=== PATIENT | female | born 1960 | race Two or more races ===

== ENCOUNTER 2024-10-12 19:34 | Emergency (ER) | payer MEDICARE, OTHER ==
[~2024-10-12] VITALS: Ht 157.5 cm; Wt 93.9 kg
[2024-10-12] MEDS ORDERED: HYDROCODONE/APAP 5/325MG TABLET ONE (19:56)
[2024-10-12] MEDS: HYDROCODONE/APAP 5/325MG TABLET PO ONE (19:59)
[2024-10-12 20:52] LABS: BASOPHILS % (AUTO) 0.7 % (0.0-2.0); EOSINOPHILS # (AUTO) 0.1 K/uL (0.0-0.7); EOSINOPHILS % (AUTO) 5.4 % (0.0-6.0); HEMATOCRIT 42 % (33-45); HEMOGLOBIN 13.8 g/dL (11.5-14.8); LYMPHOCYTES # (AUTO) 0.6 K/uL (0.8-4.8); LYMPHOCYTES % (AUTO) 33.5 % (20.0-44.0); MEAN CORPUSCULAR HEMOGLOBIN 32 PG (26.0-33.0); MEAN CORPUSCULAR HGB CONC 33 g/dl (31.0-36.0); MEAN CORPUSCULAR VOLUME 96 fL (82-100); MONOCYTES # (AUTO) 0.1 K/uL (0.1-1.30); MONOCYTES % (AUTO) 4.6 % (2.0-12.0); NEUTROPHILS % (AUTO) 55.8 % (43.0-81.0); PLATELET COUNT (AUTO) 102 K/uL (150-450); RED BLOOD CELL COUNT(AUTO) 4.33 MIL/uL (4.0-5.2); RED CELL DISTRIBUTION WIDTH 16.5 % (11.5-15.0)
[2024-10-12 20:56] LABS: CALCIUM, SERUM 9.5 mg/dL (8.5-10.1); CARBON DIOXIDE 27 mmol/L (21-32); CHLORIDE 103 mmol/L (98-107); CREATININE 0.9 mg/dL (0.6-1.3); GLUCOSE 221 mg/dL (74-106); POTASSIUM 5.3 mmol/L (3.5-5.1); SODIUM SERUM 134 mmol/L (136-145); UREA NITROGEN, BLOOD 16 mg/dL (7-18); WHITE BLOOD COUNT (AUTO) 1.8 K/uL (4.3-11.0)
[2024-10-12 21:02] LABS: ALANINE AMINOTRANSFERASE 107 U/L (12-78); ALBUMIN 3.5 g/dL (3.4-5.0); ALCOHOL, BLOOD < 3 mg/dL (0-10); ALKALINE PHOSPHATASE 117 U/L (46-116); ASPARTATE AMINOTRANSFERASE 55 U/L (15-37); BILIRUBIN,DIRECT 0.1 mg/dL (0.0-0.2); BILIRUBIN,TOTAL 0.3 mg/dL (0.2-1.0); TOTAL PROTEIN, SERUM 8.4 g/dL (6.4-8.2)
[2024-10-12 21:25] LABS: BAND % (MANUAL) 1 % (0.0-5.0); LYMPHOCYTES % (MANUAL) 32 % (16-48); MONOCYTES % (MANUAL) 7 % (0-11.0); NEUTROPHILS % (MANUAL) 57 (42-76)
[2024-10-12 21:26] LABS: ANISOCYTOSIS 1+; BASOPHILS % (MANUAL) 0 % (0.0-2.0); EOSINOPHILS % (MANUAL) 3 % (0-4); PLATELET ESTIMATE DECREASED
[2024-10-13 01:12] VITALS: BP 103/66; TEMP 97.7; O2SAT 97
== END 2024-10-13 01:12 ==
LOC: ER 19:36
DX: R25.1 Tremor, unspecified (principal); G89.29 Other chronic pain; M25.551 Pain in right hip; R00.0 Tachycardia, unspecified; R74.01 Elevation of levels of liver transaminase levels; E66.01 Morbid (severe) obesity due to excess calories; E87.6 Hypokalemia; G62.9 Polyneuropathy, unspecified; I48.91 Unspecified atrial fibrillation; I73.9 Peripheral vascular disease, unspecified; R56.9 Unspecified convulsions; Z79.01 Long term (current) use of anticoagulants; Z88.0 Allergy status to penicillin; Z88.5 Allergy status to narcotic agent; Z88.6 Allergy status to analgesic agent; Z68.37 Body mass index [BMI] 37.0-37.9, adult
CPT/HCPCS: 36415; 70450-TC; 72192-TC; 80048-TC; 80076-TC; 85025-TC; G0480

== ENCOUNTER 2024-10-18 17:53 | Inpatient (IN) | payer MEDICARE ==
[~2024-10-18] VITALS: Ht 167.6 cm; Wt 90.7 kg
[2024-10-18] MEDS ORDERED: LORAZEPAM INJ 2 MG/ML VIAL ONE ×3 (18:52→20:15)
[2024-10-18] MEDS: LORAZEPAM INJ 2 MG/ML VIAL IM ONE ×3 (19:00→20:35)
[2024-10-18] MEDS ORDERED: ZINC56.713 TP (19:22)
[2024-10-18] MEDS ORDERED: APIX5TAB PO (19:22)
[2024-10-18] MEDS ORDERED: SENN8.6T19 PO (19:22)
[2024-10-18] MEDS ORDERED: HYDR-4303 PO (19:22)
[2024-10-18] MEDS ORDERED: NA P133E RC (19:22)
[2024-10-18] MEDS ORDERED: ACET325T53 PO ×2 (19:22)
[2024-10-18] MEDS ORDERED: MAGN400O6 PO (19:22)
[2024-10-18] MEDS ORDERED: ARIP2TAB19 PO (19:22)
[2024-10-18] MEDS ORDERED: HYDR-3980 PO (19:22)
[2024-10-18] MEDS ORDERED: DOCU100C36 PO (19:22)
[2024-10-18] MEDS ORDERED: POLY119P17 PO (19:22)
[2024-10-18] MEDS ORDERED: BISA10SU11 RC (19:22)
[2024-10-18] MEDS ORDERED: NYST60PO TP (19:22)
[2024-10-18] MEDS ORDERED: TRIA0.2585 PO (19:22)
[2024-10-18] MEDS ORDERED: GABA600T12 PO (19:22)
[2024-10-18 19:58] LABS: EOSINOPHILS # (AUTO) 0.1 K/uL (0.0-0.7); EOSINOPHILS % (AUTO) 5.2 % (0.0-6.0); HEMATOCRIT 36 % (33-45); HEMOGLOBIN 11.8 g/dL (11.5-14.8); LYMPHOCYTES # (AUTO) 1.3 K/uL (0.8-4.8); LYMPHOCYTES % (AUTO) 50.6 % (20.0-44.0); MEAN CORPUSCULAR HEMOGLOBIN 32 PG (26.0-33.0); MEAN CORPUSCULAR HGB CONC 33 g/dl (31.0-36.0); MEAN CORPUSCULAR VOLUME 97 fL (82-100); MONOCYTES # (AUTO) 0.3 K/uL (0.1-1.30); MONOCYTES % (AUTO) 10.9 % (2.0-12.0); NEUTROPHILS # (AUTO) 0.8 K/uL (1.8-8.9); NEUTROPHILS % (AUTO) 32.3 % (43.0-81.0); PLATELET COUNT (AUTO) 92 K/uL (150-450); RED CELL DISTRIBUTION WIDTH 16.2 % (11.5-15.0); WHITE BLOOD COUNT (AUTO) 2.6 K/uL (4.3-11.0)
[2024-10-18] MEDS: IV NS 0.9% 500 ML BAG IV ONE (20:10)
[2024-10-18 20:11] LABS: CREATININE 0.9 mg/dL (0.6-1.3); POTASSIUM 4.9 mmol/L (3.5-5.1)
[2024-10-18 20:19] LABS: ALBUMIN 2.9 g/dL (3.4-5.0); BILIRUBIN,DIRECT 0.1 mg/dL (0.0-0.2); BILIRUBIN,TOTAL 0.2 mg/dL (0.2-1.0); TOTAL PROTEIN, SERUM 7.4 g/dL (6.4-8.2)
[2024-10-18] MEDS ORDERED: LEVETIRACETAM (500MG) 500 MG/5 ML VIAL IV ONE (20:28)
[2024-10-18] MEDS: LEVETIRACETAM (500MG) 1,000 MG in IV NS 0.9% 90 ML IV SCH (20:30)
[2024-10-18 20:36] LABS: NT-PRO BNP 60 pg/mL (0-125)
[2024-10-18] MEDS ORDERED: BISACODYL SUPP (10 MG) 10 MG/SUPP.RECT SUPP.RECT RC PRN (21:30)
[2024-10-18] MEDS ORDERED: Z GUARD REMEDY 4 OZ OINT TP PRN (21:30)
[2024-10-18] MEDS ORDERED: ONDANSETRON HCL/PF 4 MG/2 ML VIAL IVP PRN (21:30)
[2024-10-18] MEDS ORDERED: ACETAMINOPHEN 650 MG/SUPP.RECT RC PRN (21:30)
[2024-10-18] MEDS ORDERED: MAGNESIUM HYDROXIDE 30 ML UDC PO PRN (21:30)
[2024-10-18] MEDS: SENNOSIDES 8.6 MG TABLET PO SCH (22:00)
[2024-10-18 22:58] LABS: EOSINOPHILS % (MANUAL) 5 % (0-4); LYMPHOCYTES % (MANUAL) 55 % (16-48); MONOCYTES % (MANUAL) 9 % (0-11.0); NEUTROPHILS % (MANUAL) 31 (42-76); PLATELET ESTIMATE DECREASED
[2024-10-18 22:59] LABS: ANISOCYTOSIS 1+
[2024-10-18] MEDS: LORAZEPAM INJ 2 MG/ML VIAL IV PRN (23:15)
[2024-10-19] VITALS (19 sets, daily range): BP systolic 94–148; BP diastolic 48–96; TEMP 97.7–98.1; O2SAT 98–100
[2024-10-19] MEDS ORDERED: LORAZEPAM INJ 2 MG/ML VIAL ONE (03:12)
[2024-10-19] MEDS: IV NS 0.9% 1,000 ML IV SCH (06:30)
[2024-10-19] MEDS ORDERED: LEVETIRACETAM (500MG) 1,000 MG in PREMIX 90 EA IV SCH (09:00)
[2024-10-19] MEDS: DOCUSATE SODIUM 100 MG CAPSULE PO SCH (09:00)
[2024-10-19] MEDS ORDERED: APIXABAN 5 MG TABLET PO SCH (09:00)
[2024-10-19] MEDS ORDERED: ARIPIPRAZOLE 2 MG TABLET PO SCH (09:00)
[2024-10-19] MEDS: POLYETHYLENE GLYCOL 3350 17 GM POWD.PACK PO SCH (09:00)
[2024-10-19] MEDS: GABAPENTIN 300 MG CAPSULE PO SCH (09:00)
[2024-10-19] MEDS: IV NS 0.9% 1,000 ML IV PRN (09:04)
[2024-10-19] MEDS: LACOSAMIDE 200 MG in IV NS 0.9% 100 ML IV ONE (09:17)
[2024-10-19] MEDS: LEVETIRACETAM (500MG) 1,500 MG in IV NS 0.9% 85 ML IV SCH (09:17)
[2024-10-19] MEDS: PANTOPRAZOLE 40 MG VIAL IV SCH (09:22)
[2024-10-19] MEDS: LORAZEPAM INJ 2 MG/ML VIAL IV ONE ×2 (09:26→13:21)
[2024-10-19] MEDS ORDERED: LACOSAMIDE 100 MG in IV NS 0.9% 50 ML IV SCH (10:30)
[2024-10-19] MEDS: ENOXAPARIN SODIUM 100 MG/ML DISP.SYRIN SQ SCH (11:13)
[2024-10-19] MEDS: HALOPERIDOL LACTATE INJ 5 MG/ML VIAL IM ONE (12:41)
[2024-10-19] MEDS ORDERED: LORAZEPAM 4 MG/ML VIAL IV ONE (13:00)
[2024-10-19 13:49] LABS: CALCIUM, SERUM 8.9 mg/dL (8.5-10.1); CREATININE 0.7 mg/dL (0.6-1.3); MAGNESIUM 1.8 mg/dL (1.8-2.4); PHOSPHORUS 3.4 mg/dL (2.5-4.9); POTASSIUM 4.1 mmol/L (3.5-5.1)
[2024-10-19 13:54] LABS: BASOPHILS % (AUTO) 1.1 % (0.0-2.0); EOSINOPHILS # (AUTO) 0.1 K/uL (0.0-0.7); EOSINOPHILS % (AUTO) 5.5 % (0.0-6.0); HEMATOCRIT 35 % (33-45); HEMOGLOBIN 11.7 g/dL (11.5-14.8); LYMPHOCYTES # (AUTO) 0.9 K/uL (0.8-4.8); LYMPHOCYTES % (AUTO) 48.4 % (20.0-44.0); MEAN CORPUSCULAR HEMOGLOBIN 32 PG (26.0-33.0); MEAN CORPUSCULAR HGB CONC 34 g/dl (31.0-36.0); MEAN CORPUSCULAR VOLUME 95 fL (82-100); MONOCYTES # (AUTO) 0.1 K/uL (0.1-1.30); MONOCYTES % (AUTO) 6.6 % (2.0-12.0); NEUTROPHILS # (AUTO) 0.7 K/uL (1.8-8.9); NEUTROPHILS % (AUTO) 38.4 % (43.0-81.0); PLATELET COUNT (AUTO) 90 K/uL (150-450); RED BLOOD CELL COUNT(AUTO) 3.65 MIL/uL (4.0-5.2)
[2024-10-19 14:33] LABS: WHITE BLOOD COUNT (AUTO) 1.8 K/uL (4.3-11.0)
[2024-10-19 16:10] LABS: ANISOCYTOSIS 1+; BASOPHILS % (MANUAL) 0 % (0.0-2.0); EOSINOPHILS % (MANUAL) 4 % (0-4); LYMPHOCYTES % (MANUAL) 50 % (16-48); MONOCYTES % (MANUAL) 7 % (0-11.0); NEUTROPHILS % (MANUAL) 39 (42-76); PLATELET ESTIMATE DECREASED
[2024-10-19] MEDS: LACOSAMIDE 100 MG in IV NS 0.9% 50 ML IV SCH (20:43)
[2024-10-19] MEDS: HYDROMORPHONE 1 MG/1 ML DISP.SYRIN IV PRN (21:12)
[2024-10-20] VITALS (39 sets, daily range): BP systolic 82–131; BP diastolic 43–93; TEMP 97.4–98.1; O2SAT 96–100
[2024-10-20 12:08] LABS: BASOPHILS % (AUTO) 1.7 % (0.0-2.0); EOSINOPHILS # (AUTO) 0.1 K/uL (0.0-0.7); EOSINOPHILS % (AUTO) 4.9 % (0.0-6.0); HEMATOCRIT 34 % (33-45); HEMOGLOBIN 11.4 g/dL (11.5-14.8); LYMPHOCYTES # (AUTO) 1.1 K/uL (0.8-4.8); LYMPHOCYTES % (AUTO) 46.5 % (20.0-44.0); MEAN CORPUSCULAR HEMOGLOBIN 32 PG (26.0-33.0); MEAN CORPUSCULAR HGB CONC 33 g/dl (31.0-36.0); MEAN CORPUSCULAR VOLUME 96 fL (82-100); MONOCYTES # (AUTO) 0.1 K/uL (0.1-1.30); MONOCYTES % (AUTO) 6.1 % (2.0-12.0); NEUTROPHILS % (AUTO) 40.8 % (43.0-81.0); PLATELET COUNT (AUTO) 87 K/uL (150-450); RED BLOOD CELL COUNT(AUTO) 3.54 MIL/uL (4.0-5.2); RED CELL DISTRIBUTION WIDTH 16.2 % (11.5-15.0); WHITE BLOOD COUNT (AUTO) 2.3 K/uL (4.3-11.0)
[2024-10-20 12:31] LABS: CALCIUM, SERUM 8.8 mg/dL (8.5-10.1); CREATININE 0.7 mg/dL (0.6-1.3); POTASSIUM 4.4 mmol/L (3.5-5.1)
[2024-10-20 13:11] LABS: EOSINOPHILS % (MANUAL) 4 % (0-4); LYMPHOCYTES % (MANUAL) 44 % (16-48); MONOCYTES % (MANUAL) 10 % (0-11.0); NEUTROPHILS % (MANUAL) 42 (42-76); PLATELET ESTIMATE DECREASED
[2024-10-20] MEDS ORDERED: HYDROMORPHONE 1 MG/1 ML DISP.SYRIN IV PRN (20:00)
[2024-10-20] MEDS: HYDROMORPHONE 1 MG/1 ML DISP.SYRIN IV PRN (20:34)
[2024-10-20] MEDS ORDERED: NITROGLYCERIN 0.4 MG/TAB BOTTLE SL PRN (21:30)
[2024-10-20] MEDS: NITROGLYCERIN 0.4 MG/TAB BOTTLE SL PRN (21:54)
[2024-10-21] VITALS (47 sets, daily range): BP systolic 61–153; BP diastolic 33–95; TEMP 97.3–98.2; O2SAT 81–100
[2024-10-21] MEDS: MORPHINE SULFATE INJ 2 MG/ML DISP.SYRIN IV PRN (19:25)
[2024-10-21 20:39] LABS: BASOPHILS % (AUTO) 1.6 % (0.0-2.0); EOSINOPHILS # (AUTO) 0.1 K/uL (0.0-0.7); EOSINOPHILS % (AUTO) 5.4 % (0.0-6.0); HEMATOCRIT 34 % (33-45); HEMOGLOBIN 11.3 g/dL (11.5-14.8); LYMPHOCYTES # (AUTO) 1.1 K/uL (0.8-4.8); LYMPHOCYTES % (AUTO) 47.8 % (20.0-44.0); MEAN CORPUSCULAR HEMOGLOBIN 33 PG (26.0-33.0); MEAN CORPUSCULAR HGB CONC 33 g/dl (31.0-36.0); MEAN CORPUSCULAR VOLUME 98 fL (82-100); MONOCYTES # (AUTO) 0.2 K/uL (0.1-1.30); MONOCYTES % (AUTO) 9.3 % (2.0-12.0); NEUTROPHILS # (AUTO) 0.8 K/uL (1.8-8.9); NEUTROPHILS % (AUTO) 35.9 % (43.0-81.0); PLATELET COUNT (AUTO) 100 K/uL (150-450); RED BLOOD CELL COUNT(AUTO) 3.47 MIL/uL (4.0-5.2); RED CELL DISTRIBUTION WIDTH 16.1 % (11.5-15.0); WHITE BLOOD COUNT (AUTO) 2.2 K/uL (4.3-11.0)
[2024-10-21] MEDS: LACOSAMIDE 150 MG in IV NS 0.9% 50 ML IV SCH (21:06)
[2024-10-21 21:20] LABS: CALCIUM, SERUM 8.7 mg/dL (8.5-10.1); CREATININE 0.9 mg/dL (0.6-1.3); MAGNESIUM 1.8 mg/dL (1.8-2.4); PHOSPHORUS 2.6 mg/dL (2.5-4.9); POTASSIUM 4.3 mmol/L (3.5-5.1)
[2024-10-22] VITALS (22 sets, daily range): BP systolic 101–156; BP diastolic 44–91; TEMP 97.5–98.6; O2SAT 96–100
[2024-10-22 00:07] LABS: ANISOCYTOSIS 1+; BASOPHILS % (MANUAL) 0 % (0.0-2.0); EOSINOPHILS % (MANUAL) 3 % (0-4); LYMPHOCYTES % (MANUAL) 48 % (16-48); MONOCYTES % (MANUAL) 11 % (0-11.0); NEUTROPHILS % (MANUAL) 38 (42-76); OVALOCYTES FEW; PLATELET ESTIMATE DECREASED
[2024-10-22] MEDS: PANTOPRAZOLE 40 MG TABLET.DR PO SCH (09:00)
[2024-10-22] MEDS: LEVETIRACETAM (500MG) 2,000 MG in IV NS 0.9% 80 ML IV SCH (21:05)
[2024-10-22] MEDS: LACOSAMIDE 200 MG in IV NS 0.9% 50 ML IV SCH (22:09)
[2024-10-23] VITALS: BP 135/64; TEMP 97.9; O2SAT 100
[2024-10-23 04:00] VITALS: BP 126/68; TEMP 97.7; O2SAT 2
[2024-10-23 08:00] VITALS: BP 112/81; TEMP 97.9; O2SAT 98
[2024-10-23] MEDS: LACOSAMIDE 200 MG in IV NS 0.9% 100 ML IV SCH (08:00)
[2024-10-23] MEDS ORDERED: LEVE1000 PO (09:42)
[2024-10-23] MEDS ORDERED: LACO200T2 PO (09:42)
[2024-10-23 12:00] VITALS: BP 158/77; TEMP 97.5; O2SAT 99
[2024-10-23 16:00] VITALS: BP 146/73; TEMP 98.1; O2SAT 99
== END 2024-10-23 16:15 | DRG 101 ==
LOC: ER 17:55 → TELE 21:07 → TRANSITION 21:39 → ICU 10-19 06:32 → TELE-TD 10-22 18:38 → TELE1 10-23 10:06
PROVIDERS: ATTEND Nurse Practitioner Acute Care
DX: G40.901 Epilepsy, unspecified, not intractable, with status epilepticus (principal); E44.0 Moderate protein-calorie malnutrition; I48.20 Chronic atrial fibrillation, unspecified; E86.0 Dehydration; E88.09 Other disorders of plasma-protein metabolism, not elsewhere classified; D72.819 Decreased white blood cell count, unspecified; Z88.0 Allergy status to penicillin; Z79.01 Long term (current) use of anticoagulants; Z86.718 Personal history of other venous thrombosis and embolism; Z68.32 Body mass index [BMI] 32.0-32.9, adult; F39 Unspecified mood [affective] disorder; G24.01 Drug induced subacute dyskinesia; Z88.5 Allergy status to narcotic agent; R79.89 Other specified abnormal findings of blood chemistry
CPT/HCPCS: 36415; 70450-TC; 71045-TC; 80048-TC; 80076-TC; 83735-TC; 83880; 84100-TC; 84484-TC; 85025-TC; 87081-TC; A4223; G0378; J1171; J1630; J1650; J1953; J2060; J2270; J2405; J2470; J7030; J7050

== ENCOUNTER 2024-11-03 14:37 | Inpatient (IN) | payer MEDICARE, MEDICAID ==
[~2024-11-03] VITALS: Ht 167.6 cm; Wt 90.7 kg
[2024-11-03] MEDS: SENNOSIDES 8.6 MG TABLET PO SCH (02:32)
[~2024-11-03 14:37] MED LIST: ACET325T53 PO; APIX5TAB PO; ARIP2TAB19 PO; BISA10SU11 RC; DOCU100C36 PO; GABA600T12 PO; HYDR-3980 PO; HYDR-4303 PO; LACO200T2 PO; LEVE1000 PO; MAGN400O6 PO; NA P133E RC; NYST60PO TP; POLY119P17 PO; SENN8.6T19 PO; TRIA0.2585 PO; ZINC56.713 TP
[2024-11-03 16:09] LABS: BASOPHILS % (AUTO) 1.1 % (0.0-2.0); EOSINOPHILS # (AUTO) 0.1 K/uL (0.0-0.7); EOSINOPHILS % (AUTO) 6.5 % (0.0-6.0); HEMATOCRIT 37 % (33-45); HEMOGLOBIN 12.4 g/dL (11.5-14.8); LYMPHOCYTES # (AUTO) 1.1 K/uL (0.8-4.8); LYMPHOCYTES % (AUTO) 49.6 % (20.0-44.0); MEAN CORPUSCULAR HEMOGLOBIN 33 PG (26.0-33.0); MEAN CORPUSCULAR HGB CONC 34 g/dl (31.0-36.0); MEAN CORPUSCULAR VOLUME 97 fL (82-100); MONOCYTES # (AUTO) 0.2 K/uL (0.1-1.30); MONOCYTES % (AUTO) 7.8 % (2.0-12.0); NEUTROPHILS # (AUTO) 0.8 K/uL (1.8-8.9); PLATELET COUNT (AUTO) 119 K/uL (150-450); RED BLOOD CELL COUNT(AUTO) 3.79 MIL/uL (4.0-5.2); RED CELL DISTRIBUTION WIDTH 16.2 % (11.5-15.0); WHITE BLOOD COUNT (AUTO) 2.2 K/uL (4.3-11.0)
[2024-11-03 16:42] LABS: INR 1.08 (0.91-1.10); PARTIAL THROMBOPLASTIN TIME 26.7 SEC (24.3-34.3); PROTHROMBIN TIME 11.4 SECS (9.2-11.1)
[2024-11-03 16:43] LABS: CALCIUM, SERUM 9.4 mg/dL (8.5-10.1); CREATININE 1.2 mg/dL (0.6-1.3); POTASSIUM 4.3 mmol/L (3.5-5.1)
[2024-11-03 16:47] LABS: LYMPHOCYTES % (MANUAL) 45 % (16-48); NEUTROPHILS % (MANUAL) 40 (42-76)
[2024-11-03 16:48] LABS: ANISOCYTOSIS 1+; BASOPHILS % (MANUAL) 0 % (0.0-2.0); EOSINOPHILS % (MANUAL) 6 % (0-4); METAMYELOCYTES % 0 % (0-0); MONOCYTES % (MANUAL) 9 % (0-11.0); PLATELET ESTIMATE DECREASED
[2024-11-03] MEDS ORDERED: LEVE500T20 PO (17:01)
[2024-11-03] MEDS ORDERED: OXYC5TAB3 PO (17:01)
[2024-11-03] MEDS ORDERED: IPRA3AMP23 NEB (17:01)
[2024-11-03] MEDS ORDERED: NALO4SPR NS (17:01)
[2024-11-03] MEDS ORDERED: ZONI100C31 PO (17:01)
[2024-11-03] MEDS ORDERED: DIVA-78 PO (17:01)
[2024-11-03] MEDS ORDERED: IOHEXOL-350 100 ML VIAL IV ONE (17:30)
[2024-11-03] MEDS ORDERED: IV NS 0.9% 250 ML IV ONE (17:30)
[2024-11-03] MEDS ORDERED: MORPHINE SULFATE INJ 2 MG/ML DISP.SYRIN ONE (18:46)
[2024-11-03] MEDS: MORPHINE SULFATE INJ 2 MG/ML DISP.SYRIN IV ONE ×2 (19:33→19:35)
[2024-11-03] MEDS ORDERED: MAGNESIUM HYDROXIDE 30 ML UDC PO PRN (21:00)
[2024-11-03] MEDS ORDERED: ACETAMINOPHEN 325 MG TABLET PO PRN (21:00)
[2024-11-03] MEDS ORDERED: MAG HYDROX/AL HYDROX/SIMETH 30 ML UDC PO PRN (21:00)
[2024-11-03] MEDS ORDERED: Z GUARD REMEDY 4 OZ OINT TP PRN (21:00)
[2024-11-03] MEDS ORDERED: Medication Not On Formulary EA (Ipratropium/Albuterol Sulfate (Duoneb 2.5-0.5 Mg/3 Ml So NEB PRN (21:00)
[2024-11-03] MEDS: MORPHINE SULFATE INJ 2 MG/ML DISP.SYRIN IV PRN (22:22)
[2024-11-04] MEDS ORDERED: IPRATROPIUM NEB FS 0.5 MG/2.5 ML AMPUL.NEB NEB PRN (01:30)
[2024-11-04] MEDS ORDERED: ALBUTEROL FS 2.5 MG/3 ML VIAL.NEB NEB PRN (01:30)
[2024-11-04] MEDS ORDERED: MORPHINE SULFATE INJ 4 MG/ML DISP.SYRIN ONE (02:39)
[2024-11-04] MEDS: PANTOPRAZOLE 40 MG TABLET.DR PO SCH (07:30)
[2024-11-04] MEDS ORDERED: PANTOPRAZOLE 40 MG TABLET.DR PO ONE (07:47)
[2024-11-04] MEDS ORDERED: MORPHINE SULFATE INJ 2 MG/ML DISP.SYRIN ONE (08:14)
[2024-11-04] MEDS: DIVALPROEX SODIUM 500 MG TABLET.DR PO SCH (08:20)
[2024-11-04] MEDS: ARIPIPRAZOLE 2 MG TABLET PO SCH (08:20)
[2024-11-04] MEDS: POLYETHYLENE GLYCOL 3350 17 GM POWD.PACK PO SCH (08:20)
[2024-11-04] MEDS ORDERED: GABAPENTIN 300 MG CAPSULE ONE (08:24)
[2024-11-04] MEDS ORDERED: APIXABAN 5 MG TABLET ONE (08:24)
[2024-11-04] MEDS ORDERED: LEVETIRACETAM SOL (5 ML) 100 MG/ML UDC ONE (08:29)
[2024-11-04] MEDS: GABAPENTIN 300 MG CAPSULE PO SCH (08:39)
[2024-11-04] MEDS: APIXABAN 5 MG TABLET PO SCH (08:39)
[2024-11-04] MEDS: LEVETIRACETAM (250 MG) 250 MG TABLET PO SCH (08:39)
[2024-11-04] MEDS ORDERED: LEVETIRACETAM SOL (5 ML) 100 MG/ML UDC PO SCH (09:00)
[2024-11-04 20:00] VITALS: BP 119/65; TEMP 97.3; O2SAT 95
[2024-11-04] MEDS: ZOLPIDEM TARTRATE 5 MG TABLET PO PRN (20:44)
[2024-11-05] VITALS: BP 123/70; TEMP 97.8; O2SAT 100
[2024-11-05 04:00] VITALS: BP 119/69; TEMP 97.4; O2SAT 100
[2024-11-05 08:00] VITALS: BP 104/85; TEMP 97.5; O2SAT 97
[2024-11-06] MEDS ORDERED: ONDANSETRON HCL/PF 4 MG/2 ML VIAL ONE (15:55)
== END 2024-11-05 19:15 | DRG 206 ==
LOC: ER 14:41 → TRANSITION 11-04 00:46 → TELE1 11-04 09:39
PROVIDERS: ADMIT Nurse Practitioner Family; ATTEND Internal Medicine
DX: M94.0 Chondrocostal junction syndrome [Tietze] (principal); E87.1 Hypo-osmolality and hyponatremia; I48.20 Chronic atrial fibrillation, unspecified; G40.909 Epilepsy, unspecified, not intractable, without status epilepticus; I10 Essential (primary) hypertension; E66.9 Obesity, unspecified; F39 Unspecified mood [affective] disorder; G89.29 Other chronic pain; Z79.01 Long term (current) use of anticoagulants; Z86.711 Personal history of pulmonary embolism; Z86.718 Personal history of other venous thrombosis and embolism; Z88.0 Allergy status to penicillin; S20.219A Contusion of unspecified front wall of thorax, initial encounter; W19.XXXA Unspecified fall, initial encounter; Y93.9 Activity, unspecified; M32.9 Systemic lupus erythematosus, unspecified; R73.9 Hyperglycemia, unspecified; Z68.32 Body mass index [BMI] 32.0-32.9, adult; M48.00 Spinal stenosis, site unspecified; Z99.3 Dependence on wheelchair; Y92.129 Unspecified place in nursing home as the place of occurrence of the external cause; R07.81 Pleurodynia
CPT/HCPCS: 36415; 71045-TC; 72131-TC; 80048-TC; 84484-TC; 85025-TC; 85730-TC; 93307-TC; A6403; G0378; J1953; J2270; J2405; J7050; Q9967

== ENCOUNTER 2024-11-05 19:10 | Inpatient (IN) | payer MEDICARE, OTHER ==
[~2024-11-05] VITALS: Ht 170.2 cm; Wt 73.5 kg
[~2024-11-05 19:10] MED LIST changes: -ACET325T53 PO; +DIVA-78 PO; -DOCU100C36 PO; -HYDR-3980 PO; -HYDR-4303 PO; +IPRA3AMP23 NEB; -LACO200T2 PO; -LEVE1000 PO; +LEVE500T20 PO; +NALO4SPR NS; +OXYC5TAB3 PO; +ZONI100C31 PO
[2024-11-05] MEDS: LORAZEPAM INJ 2 MG/ML VIAL IVP ONE (19:30)
[2024-11-05] MEDS: IV NS 0.9% 500 ML BAG IV ONE (19:30)
[2024-11-05] MEDS ORDERED: LORAZEPAM INJ 2 MG/ML VIAL ONE (19:37)
[2024-11-05 20:14] LABS: BASOPHILS % (AUTO) 1.3 % (0.0-2.0); EOSINOPHILS # (AUTO) 0.1 K/uL (0.0-0.7); EOSINOPHILS % (AUTO) 6.5 % (0.0-6.0); HEMATOCRIT 38 % (33-45); HEMOGLOBIN 12.8 g/dL (11.5-14.8); LYMPHOCYTES # (AUTO) 0.9 K/uL (0.8-4.8); LYMPHOCYTES % (AUTO) 42.2 % (20.0-44.0); MEAN CORPUSCULAR HEMOGLOBIN 33 PG (26.0-33.0); MEAN CORPUSCULAR HGB CONC 34 g/dl (31.0-36.0); MEAN CORPUSCULAR VOLUME 99 fL (82-100); MONOCYTES # (AUTO) 0.1 K/uL (0.1-1.30); MONOCYTES % (AUTO) 6.8 % (2.0-12.0); NEUTROPHILS # (AUTO) 0.9 K/uL (1.8-8.9); NEUTROPHILS % (AUTO) 43.2 % (43.0-81.0); PLATELET COUNT (AUTO) 90 K/uL (150-450); RED BLOOD CELL COUNT(AUTO) 3.87 MIL/uL (4.0-5.2); RED CELL DISTRIBUTION WIDTH 15.9 % (11.5-15.0); WHITE BLOOD COUNT (AUTO) 2.2 K/uL (4.3-11.0)
[2024-11-05 20:21] LABS: CALCIUM, SERUM 9.4 mg/dL (8.5-10.1); POTASSIUM 5.1 mmol/L (3.5-5.1)
[2024-11-05 21:19] LABS: ANISOCYTOSIS 1+; EOSINOPHILS % (MANUAL) 8 % (0-4); LYMPHOCYTES % (MANUAL) 40 % (16-48); MONOCYTES % (MANUAL) 10 % (0-11.0); NEUTROPHILS % (MANUAL) 42 (42-76); PLATELET ESTIMATE DECREASED
[2024-11-05] MEDS ORDERED: Z GUARD REMEDY 4 OZ OINT TP PRN (21:30)
[2024-11-05] MEDS ORDERED: LEVETIRACETAM (500MG) 1,000 MG in IV NS 0.9% 90 ML IV SCH (21:30)
[2024-11-05] MEDS ORDERED: MAG HYDROX/AL HYDROX/SIMETH 30 ML UDC PO PRN (21:30)
[2024-11-05] MEDS ORDERED: ACETAMINOPHEN 325 MG TABLET PO PRN (21:30)
[2024-11-05] MEDS ORDERED: MAGNESIUM HYDROXIDE 30 ML UDC PO PRN (21:30)
[2024-11-06] MEDS ORDERED: ALBUTEROL FS 2.5 MG/0.5 ML VIAL.NEB HHN PRN (07:00)
[2024-11-06] MEDS ORDERED: TRIAZOLAM 0.125 MG TABLET PO PRN (07:30)
[2024-11-06] MEDS: SENNOSIDES 8.6 MG TABLET PO SCH (07:34)
[2024-11-06] MEDS: POLYETHYLENE GLYCOL 3350 17 GM POWD.PACK PO SCH (09:00)
[2024-11-06] MEDS: ZINC OXIDE 56.7 GM TUBE TP SCH (09:00)
[2024-11-06] MEDS: DIVALPROEX SODIUM 500 MG TABLET.DR PO SCH (09:00)
[2024-11-06] MEDS ORDERED: ZONISAMIDE 100 MG CAPSULE PO SCH (09:00)
[2024-11-06] MEDS: ARIPIPRAZOLE 2 MG TABLET PO SCH (09:00)
[2024-11-06] MEDS ORDERED: oxyCODONE IR immediate release 5 MG TABLET ONE (09:29)
[2024-11-06] MEDS ORDERED: APIXABAN 5 MG TABLET ONE ×2 (09:30→17:52)
[2024-11-06] MEDS: APIXABAN 5 MG TABLET PO SCH (09:30)
[2024-11-06] MEDS ORDERED: GABAPENTIN 300 MG CAPSULE ONE ×4 (09:30→17:53)
[2024-11-06] MEDS: oxyCODONE IR immediate release 5 MG TABLET PO PRN (09:30)
[2024-11-06] MEDS: GABAPENTIN 300 MG CAPSULE PO SCH (09:30)
[2024-11-06] MEDS: LEVETIRACETAM (500MG) 1,500 MG in IV NS 0.9% 85 ML IV SCH (10:00)
[2024-11-06] MEDS ORDERED: NALOXONE HCL 0.4 MG/ML AMPUL IV PRN (14:30)
[2024-11-06] MEDS: MORPHINE SULFATE INJ 2 MG/ML DISP.SYRIN IV PRN (16:14)
[2024-11-06] MEDS: ONDANSETRON HCL/PF 4 MG/2 ML VIAL IVP PRN (16:15)
[2024-11-06] MEDS ORDERED: MORPHINE SULFATE INJ 2 MG/ML DISP.SYRIN ONE (20:09)
[2024-11-06 20:40] VITALS: BP 103/58; TEMP 97.7; O2SAT 99
[2024-11-06 22:47] VITALS: BP 103/58; TEMP 97.7; O2SAT 99
[2024-11-07] VITALS: BP 98/60; TEMP 97.5; TEMP 97.9; O2SAT 98
[2024-11-07 04:00] VITALS: BP_SYST 121; BP_SYST 140; BP_DIAS 61; BP_DIAS 74; TEMP 97.9; O2SAT 95; O2SAT 99
[2024-11-07] MEDS: LORAZEPAM INJ 2 MG/ML VIAL IV PRN (07:53)
[2024-11-07 08:00] VITALS: BP 112/73; TEMP 98.1; O2SAT 98
[2024-11-07] MEDS: LEVETIRACETAM (250 MG) 250 MG TABLET PO SCH (09:28)
[2024-11-07 20:00] VITALS: BP 107/61; TEMP 97.5; O2SAT 98
[2024-11-07] MEDS: LEVETIRACETAM (500MG) 1,500 MG in IV NS 0.9% 85 ML IV SCH (21:49)
[2024-11-08 08:32] VITALS: BP 99/74; TEMP 98.1; O2SAT 100
[2024-11-08 12:00] VITALS: BP 107/60; TEMP 98; O2SAT 99
[2024-11-08 20:00] VITALS: BP 125/83; TEMP 99; O2SAT 99
[2024-11-09 10:00] VITALS: BP 136/81; TEMP 98.6; O2SAT 98
== END 2024-11-09 13:45 | DRG 101 ==
LOC: ER 19:18 → TRANSITION 11-06 01:23 → TELE 11-06 18:40
PROVIDERS: ADMIT Nurse Practitioner Family; ATTEND Nurse Practitioner Acute Care
DX: G40.409 Other generalized epilepsy and epileptic syndromes, not intractable, without status epilepticus (principal); E87.1 Hypo-osmolality and hyponatremia; I48.20 Chronic atrial fibrillation, unspecified; Z86.711 Personal history of pulmonary embolism; Z79.01 Long term (current) use of anticoagulants; F39 Unspecified mood [affective] disorder; D69.6 Thrombocytopenia, unspecified; D72.819 Decreased white blood cell count, unspecified; G62.9 Polyneuropathy, unspecified; G89.29 Other chronic pain; I10 Essential (primary) hypertension; Z74.01 Bed confinement status; Z86.718 Personal history of other venous thrombosis and embolism; Z88.0 Allergy status to penicillin; Z88.6 Allergy status to analgesic agent; M32.9 Systemic lupus erythematosus, unspecified; Z91.199 Patient's noncompliance with other medical treatment and regimen due to unspecified reason; R73.9 Hyperglycemia, unspecified; Z98.890 Other specified postprocedural states; M48.00 Spinal stenosis, site unspecified; Z79.899 Other long term (current) drug therapy; Z99.3 Dependence on wheelchair
CPT/HCPCS: 36415; 70450-TC; 80048-TC; 85025-TC; 87081-TC; 95819-TC; A4223; G0378; J1953; J2060; J2270; J7030; J7040

== ENCOUNTER 2024-11-09 20:48 | Emergency (ER) | payer MEDICARE, OTHER ==
[~2024-11-09] VITALS: Ht 170.2 cm; Wt 73.5 kg
[2024-11-09] MEDS ORDERED: LEVETIRACETAM (250 MG) 250 MG TABLET ONE (21:19)
[2024-11-09] MEDS: LEVETIRACETAM (250 MG) 250 MG TABLET PO ONE (21:21)
[2024-11-09] MEDS ORDERED: APIXABAN 5 MG TABLET ONE (22:46)
[2024-11-09] MEDS: APIXABAN 5 MG TABLET PO SCH (22:46)
[2024-11-09] MEDS ORDERED: oxyCODONE IR immediate release 5 MG TABLET ONE (22:46)
[2024-11-09] MEDS: oxyCODONE IR immediate release 5 MG TABLET PO PRN (22:47)
[2024-11-10 00:48] LABS: BASOPHILS % (AUTO) 1.2 % (0.0-2.0); EOSINOPHILS # (AUTO) 0.1 K/uL (0.0-0.7); EOSINOPHILS % (AUTO) 4.3 % (0.0-6.0); HEMATOCRIT 34 % (33-45); HEMOGLOBIN 11.7 g/dL (11.5-14.8); LYMPHOCYTES # (AUTO) 1.6 K/uL (0.8-4.8); LYMPHOCYTES % (AUTO) 51.5 % (20.0-44.0); MEAN CORPUSCULAR HEMOGLOBIN 33 PG (26.0-33.0); MEAN CORPUSCULAR HGB CONC 35 g/dl (31.0-36.0); MEAN CORPUSCULAR VOLUME 97 fL (82-100); MONOCYTES # (AUTO) 0.4 K/uL (0.1-1.30); MONOCYTES % (AUTO) 13.3 % (2.0-12.0); NEUTROPHILS # (AUTO) 0.9 K/uL (1.8-8.9); NEUTROPHILS % (AUTO) 29.7 % (43.0-81.0); PLATELET COUNT (AUTO) 86 K/uL (150-450); RED BLOOD CELL COUNT(AUTO) 3.52 MIL/uL (4.0-5.2); RED CELL DISTRIBUTION WIDTH 16.2 % (11.5-15.0); WHITE BLOOD COUNT (AUTO) 3.1 K/uL (4.3-11.0)
[2024-11-10 00:51] LABS: CALCIUM, SERUM 8.9 mg/dL (8.5-10.1); CARBON DIOXIDE 30 mmol/L (21-32); CHLORIDE 105 mmol/L (98-107); CREATININE 0.7 mg/dL (0.6-1.3); GLUCOSE 119 mg/dL (74-106); POTASSIUM 4.2 mmol/L (3.5-5.1); SODIUM SERUM 139 mmol/L (136-145); UREA NITROGEN, BLOOD 15 mg/dL (7-18)
[2024-11-10 02:35] LABS: BASOPHILS % (MANUAL) 0 % (0.0-2.0); EOSINOPHILS % (MANUAL) 4 % (0-4); LYMPHOCYTES % (MANUAL) 50 % (16-48); MONOCYTES % (MANUAL) 12 % (0-11.0); NEUTROPHILS % (MANUAL) 34 (42-76); PLATELET ESTIMATE DECREASED
[2024-11-10 03:41] VITALS: BP 128/80; TEMP 97.3; O2SAT 97
== END 2024-11-10 03:41 ==
LOC: ER 20:49
DX: R07.9 Chest pain, unspecified (principal); R06.00 Dyspnea, unspecified; G89.29 Other chronic pain; E66.01 Morbid (severe) obesity due to excess calories; I48.91 Unspecified atrial fibrillation; Z79.01 Long term (current) use of anticoagulants; Z79.899 Other long term (current) drug therapy; Z88.0 Allergy status to penicillin; Z88.6 Allergy status to analgesic agent; Z86.69 Personal history of other diseases of the nervous system and sense organs; Z87.39 Personal history of other diseases of the musculoskeletal system and connective tissue; Z86.59 Personal history of other mental and behavioral disorders; Z88.8 Allergy status to other drugs, medicaments and biological substances; Z68.25 Body mass index [BMI] 25.0-25.9, adult
CPT/HCPCS: 36415; 71045-TC; 80048-TC; 84484-TC; 85025-TC

== ENCOUNTER 2024-11-22 23:20 | Emergency (ER) | payer MEDICARE, MEDICAID ==
[~2024-11-22] VITALS: Ht 167.6 cm; Wt 86.2 kg
[2024-11-23 00:03] VITALS: TEMP 98.5
[2024-11-23] MEDS: MORPHINE SULFATE INJ 2 MG/ML DISP.SYRIN IV ONE (00:30)
[2024-11-23] MEDS: ONDANSETRON HCL/PF - ER 4 MG/2 ML VIAL IV ONE (00:30)
[2024-11-23 01:05] LABS: BASOPHILS % (AUTO) 1.3 % (0.0-2.0); EOSINOPHILS # (AUTO) 0.1 K/uL (0.0-0.7); EOSINOPHILS % (AUTO) 4.2 % (0.0-6.0); HEMATOCRIT 37 % (33-45); HEMOGLOBIN 12.6 g/dL (11.5-14.8); LYMPHOCYTES # (AUTO) 1.5 K/uL (0.8-4.8); LYMPHOCYTES % (AUTO) 53.8 % (20.0-44.0); MEAN CORPUSCULAR HEMOGLOBIN 33 PG (26.0-33.0); MEAN CORPUSCULAR HGB CONC 34 g/dl (31.0-36.0); MEAN CORPUSCULAR VOLUME 97 fL (82-100); MONOCYTES # (AUTO) 0.2 K/uL (0.1-1.30); MONOCYTES % (AUTO) 6.2 % (2.0-12.0); NEUTROPHILS % (AUTO) 34.5 % (43.0-81.0); PLATELET COUNT (AUTO) 81 K/uL (150-450); RED BLOOD CELL COUNT(AUTO) 3.86 MIL/uL (4.0-5.2); RED CELL DISTRIBUTION WIDTH 15.4 % (11.5-15.0); WHITE BLOOD COUNT (AUTO) 2.8 K/uL (4.3-11.0)
[2024-11-23 01:20] VITALS: BP 146/91; O2SAT 98
[2024-11-23] MEDS ORDERED: CLONIDINE HCL 0.1 MG TABLET ONE (01:21)
[2024-11-23] MEDS: CLONIDINE HCL 0.1 MG TABLET PO ONE (01:22)
[2024-11-23 01:36] LABS: ALBUMIN 3.3 g/dL (3.4-5.0); BILIRUBIN,TOTAL 0.4 mg/dL (0.2-1.0); CALCIUM, SERUM 9.2 mg/dL (8.5-10.1); CREATININE 0.6 mg/dL (0.6-1.3); POTASSIUM 3.6 mmol/L (3.5-5.1); TOTAL PROTEIN, SERUM 7.6 g/dL (6.4-8.2)
[2024-11-23] MEDS: LORAZEPAM INJ 2 MG/ML VIAL IV ONE (04:14)
[2024-11-23] MEDS ORDERED: LORAZEPAM 1 MG TABLET ONE (04:17)
[2024-11-23] MEDS: LORAZEPAM 1 MG TABLET PO ONE (04:19)
[2024-11-23] MEDS ORDERED: LORAZEPAM INJ 2 MG/ML VIAL ONE (04:25)
[2024-11-23] MEDS: LORAZEPAM INJ 2 MG/ML VIAL IM ONE (04:30)
[2024-11-23 05:03] LABS: PLATELET ESTIMATE DECREASED
== END 2024-11-23 05:00 ==
LOC: ER 23:23
DX: R10.13 Epigastric pain (principal); M54.50 Low back pain, unspecified; G40.909 Epilepsy, unspecified, not intractable, without status epilepticus; I48.91 Unspecified atrial fibrillation; Z79.01 Long term (current) use of anticoagulants; Z79.899 Other long term (current) drug therapy; Z86.718 Personal history of other venous thrombosis and embolism; Z86.73 Personal history of transient ischemic attack (TIA), and cerebral infarction without residual deficits; Z88.0 Allergy status to penicillin; Z88.6 Allergy status to analgesic agent; Z87.39 Personal history of other diseases of the musculoskeletal system and connective tissue; Z86.59 Personal history of other mental and behavioral disorders
CPT/HCPCS: 99285; 74176; 71045; 96372; 93005; 85025; 83690; 80053; 84484; 83880; J2060; J2405

== ENCOUNTER 2024-12-28 21:13 | Inpatient (IN) | payer MEDICARE, OTHER ==
[~2024-12-28] VITALS: Ht 167.6 cm; Wt 89.8 kg
[2024-12-28 23:16] LABS: BASOPHILS % (AUTO) 1.1 % (0.0-2.0); EOSINOPHILS # (AUTO) 0.1 K/uL (0.0-0.7); EOSINOPHILS % (AUTO) 3.7 % (0.0-6.0); HEMATOCRIT 35 % (33-45); HEMOGLOBIN 11.7 g/dL (11.5-14.8); LYMPHOCYTES # (AUTO) 1.4 K/uL (0.8-4.8); LYMPHOCYTES % (AUTO) 56.9 % (20.0-44.0); MEAN CORPUSCULAR HEMOGLOBIN 33 PG (26.0-33.0); MEAN CORPUSCULAR HGB CONC 34 g/dl (31.0-36.0); MEAN CORPUSCULAR VOLUME 98 fL (82-100); MONOCYTES # (AUTO) 0.2 K/uL (0.1-1.30); MONOCYTES % (AUTO) 7.7 % (2.0-12.0); NEUTROPHILS # (AUTO) 0.8 K/uL (1.8-8.9); NEUTROPHILS % (AUTO) 30.6 % (43.0-81.0); PLATELET COUNT (AUTO) 71 K/uL (150-450); RED BLOOD CELL COUNT(AUTO) 3.53 MIL/uL (4.0-5.2); RED CELL DISTRIBUTION WIDTH 15.1 % (11.5-15.0); WHITE BLOOD COUNT (AUTO) 2.5 K/uL (4.3-11.0)
[2024-12-28 23:50] LABS: CALCIUM, SERUM 9.3 mg/dL (8.5-10.1); CREATININE 0.9 mg/dL (0.6-1.3); POTASSIUM 4.1 mmol/L (3.5-5.1)
[2024-12-29] LABS: ANISOCYTOSIS 1+; EOSINOPHILS % (MANUAL) 2 % (0-4); LYMPHOCYTES % (MANUAL) 55 % (16-48); MONOCYTES % (MANUAL) 6 % (0-11.0); NEUTROPHILS % (MANUAL) 37 (42-76); PLATELET ESTIMATE DECREASED
[2024-12-29] MEDS ORDERED: LORAZEPAM INJ 2 MG/ML VIAL ONE (01:12)
[2024-12-29] MEDS: LORAZEPAM INJ 2 MG/ML VIAL IM ONE (01:26)
[2024-12-29] MEDS ORDERED: MAGNESIUM HYDROXIDE 30 ML UDC PO PRN (02:30)
[2024-12-29] MEDS ORDERED: Z GUARD REMEDY 4 OZ OINT TP PRN (02:30)
[2024-12-29] MEDS ORDERED: TEMAZEPAM 15 MG CAPSULE PO PRN (02:30)
[2024-12-29] MEDS ORDERED: LEVETIRACETAM (500MG) 1,000 MG in IV NS 0.9% 90 ML IV SCH (02:30)
[2024-12-29] MEDS ORDERED: LORAZEPAM INJ 2 MG/ML VIAL IV PRN (02:30)
[2024-12-29] MEDS ORDERED: MAG HYDROX/AL HYDROX/SIMETH 30 ML UDC PO PRN (02:30)
[2024-12-29] MEDS ORDERED: ONDANSETRON HCL/PF 4 MG/2 ML VIAL IVP PRN (02:30)
[2024-12-29] MEDS: LEVETIRACETAM (500MG) 1,000 MG in IV NS 0.9% 90 ML IV STA (02:33)
[2024-12-29] MEDS ORDERED: LEVETIRACETAM (250 MG) 250 MG TABLET ONE ×2 (02:35→03:10)
[2024-12-29] MEDS: LEVETIRACETAM (250 MG) 250 MG TABLET PO ONE (02:57)
[2024-12-29 08:00] VITALS: BP 90/56; TEMP 97.7; O2SAT 100
[2024-12-29] MEDS: IV NS 0.9% 1,000 ML IV PRN (08:09)
[2024-12-29] MEDS: PANTOPRAZOLE 40 MG TABLET.DR PO SCH (08:11)
[2024-12-29] MEDS: LEVETIRACETAM (500MG) 1,000 MG in IV NS 0.9% 90 ML IV SCH (08:44)
[2024-12-29] MEDS ORDERED: MULT-594 PO (09:07)
[2024-12-29] MEDS ORDERED: BENZ1TAB7 PO (09:07)
[2024-12-29] MEDS ORDERED: MAG30ORA PO (09:07)
[2024-12-29] MEDS ORDERED: NITR0.4T48 SL (09:07)
[2024-12-29] MEDS ORDERED: CARB1TAB21 PO (09:07)
[2024-12-29] MEDS ORDERED: HYDR-3642 PO (09:07)
[2024-12-29] MEDS ORDERED: ARIP10TA57 PO (09:07)
[2024-12-29] MEDS ORDERED: DIVA500T54 PO (09:07)
[2024-12-29] MEDS ORDERED: NA PHOS,M-B/NA PHOS,DI-BA 1 EA ENEMA RC PRN (11:00)
[2024-12-29] MEDS ORDERED: BISACODYL SUPP (10 MG) 10 MG/SUPP.RECT SUPP.RECT RC PRN (11:00)
[2024-12-29 12:26] VITALS: BP 105/54; TEMP 98.1; O2SAT 98
[2024-12-29] MEDS: GABAPENTIN 300 MG CAPSULE PO SCH (12:50)
[2024-12-29] MEDS: CARBIDOPA/LEVODOPA 25/100 MG 1 UDTAB PO SCH (12:50)
[2024-12-29] MEDS: DIVALPROEX SODIUM 500 MG TABLET.DR PO SCH (13:00)
[2024-12-29] MEDS ORDERED: ALBUTEROL FS 2.5 MG/3 ML VIAL.NEB NEB PRN (13:30)
[2024-12-29] MEDS ORDERED: IPRATROPIUM NEB FS 0.5 MG/2.5 ML AMPUL.NEB HHN PRN (15:30)
[2024-12-29 16:00] VITALS: BP 109/63; TEMP 98.6; O2SAT 97
[2024-12-29] MEDS: hydrOXYzine 10 MG TABLET PO SCH (16:29)
[2024-12-29] MEDS: BENZTROPINE MESYLATE (1 MG) 1 MG TABLET PO SCH (16:29)
[2024-12-29] MEDS: POLYETHYLENE GLYCOL 3350 17 GM POWD.PACK PO SCH (16:29)
[2024-12-29] MEDS: LEVETIRACETAM (250 MG) 250 MG TABLET PO SCH (16:33)
[2024-12-29] MEDS: APIXABAN 5 MG TABLET PO SCH (16:34)
[2024-12-29 20:00] VITALS: BP 101/72; TEMP 99; O2SAT 97
[2024-12-29] MEDS: SENNOSIDES 8.6 MG TABLET PO SCH (21:15)
[2024-12-30] VITALS: BP 116/59; TEMP 97.5; O2SAT 97
[2024-12-30] MEDS: NITROGLYCERIN 0.4 MG/TAB BOTTLE SL PRN (00:55)
[2024-12-30] MEDS: IV NS 0.9% 500 ML BAG IV ONE (01:49)
[2024-12-30 04:01] VITALS: BP 101/66; TEMP 98.2; O2SAT 97
[2024-12-30 07:31] LABS: BASOPHILS % (AUTO) 1.1 % (0.0-2.0); EOSINOPHILS # (AUTO) 0.1 K/uL (0.0-0.7); HEMATOCRIT 30 % (33-45); HEMOGLOBIN 10.4 g/dL (11.5-14.8); LYMPHOCYTES # (AUTO) 1.1 K/uL (0.8-4.8); LYMPHOCYTES % (AUTO) 56.5 % (20.0-44.0); MEAN CORPUSCULAR HEMOGLOBIN 34 PG (26.0-33.0); MEAN CORPUSCULAR HGB CONC 34 g/dl (31.0-36.0); MEAN CORPUSCULAR VOLUME 98 fL (82-100); MONOCYTES # (AUTO) 0.1 K/uL (0.1-1.30); MONOCYTES % (AUTO) 7.7 % (2.0-12.0); NEUTROPHILS # (AUTO) 0.6 K/uL (1.8-8.9); NEUTROPHILS % (AUTO) 31.7 % (43.0-81.0); PLATELET COUNT (AUTO) 56 K/uL (150-450); RED CELL DISTRIBUTION WIDTH 14.9 % (11.5-15.0)
[2024-12-30 07:38] LABS: CALCIUM, SERUM 8.7 mg/dL (8.5-10.1); CREATININE 0.7 mg/dL (0.6-1.3); MAGNESIUM 1.9 mg/dL (1.8-2.4); PHOSPHORUS 3.5 mg/dL (2.5-4.9)
[2024-12-30 08:00] VITALS: BP 121/68; TEMP 97.7; O2SAT 98
[2024-12-30 08:07] LABS: WHITE BLOOD COUNT (AUTO) 1.9 K/uL (4.3-11.0)
[2024-12-30] MEDS: MULTIVITAMINS,THERAGRAN 1 UDTAB TABLET PO SCH (08:30)
[2024-12-30] MEDS: ARIPIPRAZOLE 5 MG TABLET PO SCH (09:00)
[2024-12-30 12:00] VITALS: BP 126/66; TEMP 97.3; O2SAT 99
[2024-12-30 16:00] VITALS: BP 144/70; TEMP 98.1; O2SAT 94
[2024-12-30 16:18] LABS: BAND % (MANUAL) 1 % (0.0-5.0); LYMPHOCYTES % (MANUAL) 61 % (16-48); MONOCYTES % (MANUAL) 7 % (0-11.0); NEUTROPHILS % (MANUAL) 31 (42-76)
[2024-12-30 16:19] LABS: ANISOCYTOSIS 1+; PLATELET ESTIMATE DECREASED
[2024-12-30 16:20] LABS: OVALOCYTES OCC; TEAR DROP CELLS OCC
[2024-12-30 20:00] VITALS: BP 123/72; TEMP 98.1; O2SAT 93
[2024-12-30] MEDS: oxyCODONE IR immediate release 5 MG TABLET PO PRN (21:33)
[2024-12-31] VITALS: BP 115/59; TEMP 97.7; O2SAT 96
[2024-12-31 04:00] VITALS: BP 98/52; TEMP 97.7; O2SAT 98
[2024-12-31] MEDS ORDERED: HALOPERIDOL LACTATE INJ 5 MG/ML VIAL IM PRN (10:00)
[2024-12-31 20:00] VITALS: BP_SYST 115; BP_SYST 119; BP_DIAS 62; TEMP 98.1; O2SAT 98
[2025-01-01] VITALS: BP 122/61; TEMP 98.1; O2SAT 98
[2025-01-01 04:00] VITALS: BP 129/78; TEMP 98.4; O2SAT 98
[2025-01-01 08:00] VITALS: BP 133/78; TEMP 97.5; O2SAT 100
[2025-01-01 16:00] VITALS: BP 132/68; TEMP 98.5; O2SAT 98
[2025-01-01 20:00] VITALS: BP 118/68; TEMP 98.2; O2SAT 98
[2025-01-02 07:17] LABS: BASOPHILS % (AUTO) 0.8 % (0.0-2.0); EOSINOPHILS # (AUTO) 0.1 K/uL (0.0-0.7); HEMATOCRIT 31 % (33-45); HEMOGLOBIN 10.7 g/dL (11.5-14.8); LYMPHOCYTES # (AUTO) 0.9 K/uL (0.8-4.8); LYMPHOCYTES % (AUTO) 48.6 % (20.0-44.0); MEAN CORPUSCULAR HEMOGLOBIN 34 PG (26.0-33.0); MEAN CORPUSCULAR HGB CONC 35 g/dl (31.0-36.0); MEAN CORPUSCULAR VOLUME 98 fL (82-100); MONOCYTES # (AUTO) 0.1 K/uL (0.1-1.30); MONOCYTES % (AUTO) 6.7 % (2.0-12.0); NEUTROPHILS # (AUTO) 0.8 K/uL (1.8-8.9); NEUTROPHILS % (AUTO) 39.9 % (43.0-81.0); PLATELET COUNT (AUTO) 61 K/uL (150-450); RED BLOOD CELL COUNT(AUTO) 3.12 MIL/uL (4.0-5.2)
[2025-01-02 07:22] LABS: WHITE BLOOD COUNT (AUTO) 1.9 K/uL (4.3-11.0)
[2025-01-02 07:42] LABS: CALCIUM, SERUM 8.9 mg/dL (8.5-10.1); CREATININE 0.7 mg/dL (0.6-1.3); POTASSIUM 4.1 mmol/L (3.5-5.1)
[2025-01-02 08:00] VITALS: BP 121/72; TEMP 97.5; O2SAT 98
[2025-01-02 09:49] LABS: BAND % (MANUAL) 0 % (0.0-5.0); BASOPHILS % (MANUAL) 0 % (0.0-2.0); EOSINOPHILS % (MANUAL) 5 % (0-4); LYMPHOCYTES % (MANUAL) 47 % (16-48); MONOCYTES % (MANUAL) 7 % (0-11.0); NEUTROPHILS % (MANUAL) 41 (42-76); PLATELET ESTIMATE DECREASED
[2025-01-02 14:45] LABS: APPEARANCE,URINE CLEAR (CLEAR); BILIRUBIN,URINE NEGATIVE (NEGATIVE); BLOOD, URINE NEGATIVE Ery/uL (NEGATIVE); COLOR,URINE YELLOW (YELLOW); KETONES,URINE NEGATIVE (NEGATIVE); LEUKOCYTE ESTERASE ,URINE TRACE (NEGATIVE); NITRITE, URINE POSITIVE (NEGATIVE); PROTEIN,URINE NEGATIVE (NEGATIVE); UGLUCOSE NEGATIVE (NEGATIVE); UROBILINOGEN,URINE 0.2 EU/dL (0.2)
[2025-01-02 15:19] LABS: ADD URINE CULTURE YES; BACTERIA,URINE Moderate /HPF (None Seen); RBC,URINE 0-2 /HPF (0-2)
[2025-01-02 16:00] VITALS: BP 124/65; TEMP 98.2; O2SAT 97
[2025-01-02 20:00] VITALS: BP 117/68; TEMP 98.2; O2SAT 94; O2SAT 95
[2025-01-03 08:00] VITALS: BP 119/68; TEMP 97.6; O2SAT 97
[2025-01-03] MEDS ORDERED: CEPH-570 PO (08:56)
[2025-01-03] MEDS: CEFTRIAXONE 1 G in IV D5W 50 ML IV SCH (09:34)
[2025-01-03 16:00] VITALS: BP 120/71; TEMP 98.3; O2SAT 96
[2025-01-03 20:00] VITALS: BP 116/73; TEMP 98.4; O2SAT 96
[2025-01-04 08:00] VITALS: BP 115/64; TEMP 98.4; O2SAT 98
[2025-01-04] MEDS: diphenhydrAMINE HCL 50 MG/ML VIAL IV PRN (15:10)
[2025-01-04] MEDS: HYDROCODONE/APAP 5/325MG TABLET PO PRN (15:19)
[2025-01-04] MEDS ORDERED: ALLA266C2 TP (15:29)
[2025-01-04] MEDS ORDERED: DIPH25TA62 PO (15:29)
[2025-01-04] MEDS ORDERED: PANT40TA49 PO (15:29)
[2025-01-04] MEDS ORDERED: ONDA-97 PO (15:29)
[2025-01-04] MEDS ORDERED: HALO2TAB2 IM (15:29)
[2025-01-04] MEDS ORDERED: LORA-259 PO (15:29)
[2025-01-04] MEDS ORDERED: HYDR-4209 PO (15:29)
[2025-01-04] MEDS ORDERED: TEMA15CA PO (15:29)
== END 2025-01-04 15:35 | DRG 206 ==
LOC: ER 21:21 → TELE 12-29 05:39 → MED 01-01
PROVIDERS: ADMIT Internal Medicine; ATTEND Nurse Practitioner Acute Care
DX: M94.0 Chondrocostal junction syndrome [Tietze] (principal); N39.0 Urinary tract infection, site not specified; G40.909 Epilepsy, unspecified, not intractable, without status epilepticus; I48.91 Unspecified atrial fibrillation; I73.9 Peripheral vascular disease, unspecified; F32.A Depression, unspecified; F20.9 Schizophrenia, unspecified; F41.9 Anxiety disorder, unspecified; I10 Essential (primary) hypertension; Z79.01 Long term (current) use of anticoagulants; Z86.73 Personal history of transient ischemic attack (TIA), and cerebral infarction without residual deficits; Z88.0 Allergy status to penicillin; M32.9 Systemic lupus erythematosus, unspecified; Z86.711 Personal history of pulmonary embolism; Z79.899 Other long term (current) drug therapy; Z86.718 Personal history of other venous thrombosis and embolism; Z88.6 Allergy status to analgesic agent; Z91.199 Patient's noncompliance with other medical treatment and regimen due to unspecified reason; B96.20 Unspecified Escherichia coli [E. coli] as the cause of diseases classified elsewhere; Z73.6 Limitation of activities due to disability
CPT/HCPCS: 36415; 70450-TC; 71045-TC; 80048-TC; 81001; 82962-TC; 83735-TC; 83880; 84100-TC; 84484-TC; 85025-TC; 87081-TC; 87086-TC; 87186-TC; 97110-TC; 97112-TC; 97530-TC; A4223; G0378; J0696; J1200; J1953; J2060; J7030; J7060; Q0177

== ENCOUNTER 2025-01-04 12:56 | Inpatient (IN) | payer MEDICARE, OTHER ==
[~2025-01-04] VITALS: Ht 167.6 cm; Wt 89.8 kg
[~2025-01-04 12:56] MED LIST changes: +ARIP10TA57 PO; -ARIP2TAB19 PO; +BENZ1TAB7 PO; +CARB1TAB21 PO; +CEPH-570 PO; -DIVA-78 PO; +DIVA500T54 PO; +HYDR-3642 PO; +MAG30ORA PO; +MULT-594 PO; -NALO4SPR NS; +NITR0.4T48 SL; -NYST60PO TP; -TRIA0.2585 PO; -ZINC56.713 TP; -ZONI100C31 PO
[2025-01-04] MEDS ORDERED: TEMA15CA PO (15:29)
[2025-01-04] MEDS ORDERED: HALO2TAB2 IM (15:29)
[2025-01-04] MEDS ORDERED: DIPH25TA62 PO (15:29)
[2025-01-04] MEDS ORDERED: LORA-259 PO (15:29)
[2025-01-04] MEDS ORDERED: ONDA-97 PO (15:29)
[2025-01-04] MEDS ORDERED: ALLA266C2 TP (15:29)
[2025-01-04] MEDS ORDERED: PANT40TA49 PO (15:29)
[2025-01-04] MEDS ORDERED: HYDR-4209 PO (15:29)
[2025-01-04] MEDS ORDERED: TEMAZEPAM 7.5 MG CAPSULE PO PRN ×2 (15:30)
[2025-01-04] MEDS ORDERED: MAG HYDROX/AL HYDROX/SIMETH 30 ML UDC PO PRN ×2 (15:30→17:00)
[2025-01-04] MEDS ORDERED: clonazePAM 1 MG TABLET PO PRN (15:30)
[2025-01-04] MEDS ORDERED: MAGNESIUM HYDROXIDE 30 ML UDC PO PRN ×2 (15:30→17:00)
[2025-01-04] MEDS ORDERED: clonazePAM 0.5 MG TABLET PO PRN (15:30)
[2025-01-04] MEDS: BLOOD SUGAR DIAGNOSTIC 1 EACH STRIP IN ONE (16:30)
[2025-01-04] MEDS ORDERED: BENZTROPINE MESYLATE (1 MG) 1 MG TABLET PO SCH (17:00)
[2025-01-04] MEDS ORDERED: CARBIDOPA/LEVODOPA 25/100 MG 1 UDTAB PO SCH (17:00)
[2025-01-04] MEDS ORDERED: BISACODYL SUPP (10 MG) 10 MG/SUPP.RECT SUPP.RECT RC PRN (17:00)
[2025-01-04] MEDS ORDERED: APIXABAN 5 MG TABLET PO SCH (17:00)
[2025-01-04] MEDS ORDERED: ONDANSETRON 4 MG TAB.RAPDIS PO PRN (19:30)
[2025-01-04] MEDS: DIVALPROEX SODIUM 500 MG TABLET.DR PO SCH (19:48)
[2025-01-04] MEDS: BENZTROPINE MESYLATE (1 MG) 1 MG TABLET PO SCH (19:48)
[2025-01-04] MEDS: CARBIDOPA/LEVODOPA 25/100 MG 1 UDTAB PO SCH (19:49)
[2025-01-04] MEDS: GABAPENTIN 300 MG CAPSULE PO SCH (19:49)
[2025-01-04] MEDS: APIXABAN 5 MG TABLET PO SCH (19:58)
[2025-01-04 20:25] VITALS: BP 131/66; TEMP 98.5; O2SAT 98
[2025-01-04] MEDS: Z GUARD REMEDY 4 OZ OINT TP SCH (21:00)
[2025-01-04] MEDS: LEVETIRACETAM (250 MG) 250 MG TABLET PO SCH (21:00)
[2025-01-04] MEDS: SENNOSIDES 8.6 MG TABLET PO SCH (21:32)
[2025-01-05] MEDS: PANTOPRAZOLE 40 MG TABLET.DR PO SCH (07:30)
[2025-01-05 07:32] LABS: CHOLESTEROL 165 mg/dL (<200); HDL CHOLESTEROL 61 mg/dL (40-60); LDL 103 mg/dL (0-99); TRIGLYCERIDES 66 mg/dL (30-150)
[2025-01-05 07:40] LABS: ALBUMIN 2.6 g/dL (3.4-5.0); BILIRUBIN,TOTAL 0.3 mg/dL (0.2-1.0); CALCIUM, SERUM 8.8 mg/dL (8.5-10.1); CREATININE 0.7 mg/dL (0.6-1.3); POTASSIUM 4.1 mmol/L (3.5-5.1); TOTAL PROTEIN, SERUM 6.8 g/dL (6.4-8.2)
[2025-01-05] MEDS: BENZTROPINE MESYLATE (1 MG) 1 MG TABLET PO SCH (09:00)
[2025-01-05] MEDS: POLYETHYLENE GLYCOL 3350 17 GM POWD.PACK PO SCH (09:00)
[2025-01-05] MEDS ORDERED: GABAPENTIN 300 MG CAPSULE PO SCH (09:00)
[2025-01-05] MEDS: ARIPIPRAZOLE 5 MG TABLET PO SCH (09:00)
[2025-01-05] MEDS: CEPHALEXIN MONOHYDRATE 500 MG CAPSULE PO SCH (09:00)
[2025-01-05] MEDS: MULTIVIT W/MINERALS 1 TAB TABLET PO SCH (09:00)
[2025-01-05] MEDS ORDERED: DIVALPROEX SODIUM 500 MG TABLET.DR PO SCH (09:00)
[2025-01-05 16:00] VITALS: BP 160/75; TEMP 97.7; O2SAT 100
[2025-01-05 19:51] VITALS: BP 146/73; TEMP 97.7; O2SAT 98
[2025-01-06 08:00] VITALS: BP 140/70; TEMP 98.6; O2SAT 97
[2025-01-06 16:00] VITALS: BP 115/65; TEMP 98; O2SAT 97
[2025-01-06 20:57] VITALS: BP 100/64; TEMP 97.7; O2SAT 96
[2025-01-07] MEDS: HYDROCODONE/APAP 5/325MG TABLET PO PRN (02:31)
[2025-01-07 08:00] VITALS: BP 95/64; TEMP 97; O2SAT 100
[2025-01-07 09:49] LABS: EOSINOPHILS # (AUTO) 0.1 K/uL (0.0-0.7); EOSINOPHILS % (AUTO) 2.8 % (0.0-6.0); HEMATOCRIT 34 % (33-45); HEMOGLOBIN 11.5 g/dL (11.5-14.8); MEAN CORPUSCULAR HEMOGLOBIN 33 PG (26.0-33.0); MEAN CORPUSCULAR HGB CONC 34 g/dl (31.0-36.0); MEAN CORPUSCULAR VOLUME 99 fL (82-100); MONOCYTES # (AUTO) 0.2 K/uL (0.1-1.30); MONOCYTES % (AUTO) 11.1 % (2.0-12.0); NEUTROPHILS # (AUTO) 0.7 K/uL (1.8-8.9); NEUTROPHILS % (AUTO) 34.1 % (43.0-81.0); PLATELET COUNT (AUTO) 68 K/uL (150-450); RED BLOOD CELL COUNT(AUTO) 3.45 MIL/uL (4.0-5.2); RED CELL DISTRIBUTION WIDTH 15.1 % (11.5-15.0)
[2025-01-07 12:17] LABS: EOSINOPHILS % (MANUAL) 3 % (0-4); LYMPHOCYTES % (MANUAL) 28 % (16-48); MONOCYTES % (MANUAL) 3 % (0-11.0); NEUTROPHILS % (MANUAL) 16 (42-76); PLATELET ESTIMATE DECREASED
[2025-01-07 12:22] LABS: ANISOCYTOSIS 1+; OVALOCYTES 1+; TEAR DROP CELLS 1+
[2025-01-07 16:00] VITALS: BP 93/64; TEMP 98; O2SAT 100
[2025-01-07 20:00] VITALS: BP 113/55; TEMP 98.3; O2SAT 100
[2025-01-08 08:00] VITALS: BP 122/69; TEMP 97.8; O2SAT 100
[2025-01-08 16:00] VITALS: BP 115/72; TEMP 97.7; O2SAT 96
[2025-01-08 21:50] VITALS: BP 120/69; TEMP 97.9; O2SAT 97
[2025-01-09 08:00] VITALS: BP 95/60; TEMP 98.6; O2SAT 100
[2025-01-09 16:00] VITALS: BP 103/60; TEMP 98; O2SAT 99
[2025-01-09 21:34] VITALS: BP 95/61; TEMP 98.6; O2SAT 98
[2025-01-10 08:00] VITALS: BP 109/63; TEMP 98.2; O2SAT 97
[2025-01-10 16:00] VITALS: BP 112/57; TEMP 97.9; O2SAT 97
[2025-01-10 21:24] VITALS: BP 106/54; TEMP 97.9; O2SAT 97
[2025-01-11 08:00] VITALS: BP 106/62; TEMP 98.1; O2SAT 97
[2025-01-11 16:00] VITALS: BP 108/71; TEMP 98.1; O2SAT 99
[2025-01-11] MEDS: ARIPIPRAZOLE 5 MG TABLET PO SCH (17:36)
[2025-01-11 19:57] VITALS: BP 105/58; TEMP 98.1; O2SAT 96
[2025-01-12 08:00] VITALS: BP 109/74; TEMP 97.6; O2SAT 96
[2025-01-12 16:00] VITALS: BP 113/61; TEMP 98.4; O2SAT 98
[2025-01-12 20:00] VITALS: BP 108/62; TEMP 98.4; O2SAT 97
[2025-01-13 08:00] VITALS: BP 103/72; TEMP 97.9; O2SAT 100
[2025-01-13 16:00] VITALS: BP 109/63; TEMP 98; O2SAT 100
[2025-01-13 19:53] VITALS: BP 97/43; TEMP 97.9; O2SAT 98
[2025-01-14 08:00] VITALS: BP 106/72; TEMP 98.1; O2SAT 98
== END 2025-01-14 14:50 | DRG 885 ==
LOC: GPS 15:27
PROVIDERS: ADMIT Psychiatry & Neurology Psychiatry; ATTEND Nurse Practitioner Acute Care
DX: F20.9 Schizophrenia, unspecified (principal); M32.9 Systemic lupus erythematosus, unspecified; D61.818 Other pancytopenia; I48.20 Chronic atrial fibrillation, unspecified; N39.0 Urinary tract infection, site not specified; F41.9 Anxiety disorder, unspecified; G20.A1 Parkinson's disease without dyskinesia, without mention of fluctuations; E66.9 Obesity, unspecified; F32.A Depression, unspecified; G40.909 Epilepsy, unspecified, not intractable, without status epilepticus; G89.4 Chronic pain syndrome; I10 Essential (primary) hypertension; Z86.73 Personal history of transient ischemic attack (TIA), and cerebral infarction without residual deficits; Z86.718 Personal history of other venous thrombosis and embolism; Z73.6 Limitation of activities due to disability; I73.9 Peripheral vascular disease, unspecified; Z91.199 Patient's noncompliance with other medical treatment and regimen due to unspecified reason; M50.30 Other cervical disc degeneration, unspecified cervical region; M25.842 Other specified joint disorders, left hand; Z68.32 Body mass index [BMI] 32.0-32.9, adult; M18.12 Unilateral primary osteoarthritis of first carpometacarpal joint, left hand; S60.222A Contusion of left hand, initial encounter; X58.XXXA Exposure to other specified factors, initial encounter; Y93.9 Activity, unspecified; Y92.89 Other specified places as the place of occurrence of the external cause
CPT/HCPCS: 36415; 72040-TC; 73130-TC; 80053-TC; 80061-TC; 85025-TC; 92526; 92611-TC; 97110-TC; 97530-TC

== ENCOUNTER 2025-02-03 19:24 | Inpatient (IN) | payer MEDICARE, OTHER ==
[~2025-02-03] VITALS: Ht 162.6 cm; Wt 85.7 kg
[~2025-02-03 19:24] MED LIST changes: +ALLA266C2 TP; +DIPH25TA62 PO; +HALO2TAB2 IM; +HYDR-4209 PO; -IPRA3AMP23 NEB; +LORA-259 PO; +ONDA-97 PO; -OXYC5TAB3 PO; +PANT40TA49 PO; +TEMA15CA PO
[2025-02-03 21:01] LABS: CALCIUM, SERUM 9.3 mg/dL (8.5-10.1); CARBON DIOXIDE 28 mmol/L (21-32); CHLORIDE 101 mmol/L (98-107); CREATININE 0.7 mg/dL (0.6-1.3); GLUCOSE 128 mg/dL (74-106); POTASSIUM 3.8 mmol/L (3.5-5.1); SODIUM SERUM 132 mmol/L (136-145); UREA NITROGEN, BLOOD 17 mg/dL (7-18)
[2025-02-03 21:08] LABS: BASOPHILS % (AUTO) 0.8 % (0.0-2.0); EOSINOPHILS # (AUTO) 0.1 K/uL (0.0-0.7); EOSINOPHILS % (AUTO) 2.8 % (0.0-6.0); HEMATOCRIT 33 % (33-45); HEMOGLOBIN 11.5 g/dL (11.5-14.8); LYMPHOCYTES # (AUTO) 0.9 K/uL (0.8-4.8); LYMPHOCYTES % (AUTO) 44.5 % (20.0-44.0); MEAN CORPUSCULAR HEMOGLOBIN 34 PG (26.0-33.0); MEAN CORPUSCULAR HGB CONC 35 g/dl (31.0-36.0); MEAN CORPUSCULAR VOLUME 98 fL (82-100); MONOCYTES # (AUTO) 0.2 K/uL (0.1-1.30); MONOCYTES % (AUTO) 7.6 % (2.0-12.0); NEUTROPHILS # (AUTO) 0.9 K/uL (1.8-8.9); NEUTROPHILS % (AUTO) 44.3 % (43.0-81.0); PLATELET COUNT (AUTO) 59 K/uL (150-450); RED BLOOD CELL COUNT(AUTO) 3.34 MIL/uL (4.0-5.2); RED CELL DISTRIBUTION WIDTH 15.3 % (11.5-15.0)
[2025-02-03 21:09] LABS: ALANINE AMINOTRANSFERASE 15 U/L (12-78); ALBUMIN 2.9 g/dL (3.4-5.0); ALKALINE PHOSPHATASE 83 U/L (46-116); ASPARTATE AMINOTRANSFERASE 19 U/L (15-37); BILIRUBIN,DIRECT 0.1 mg/dL (0.0-0.2); BILIRUBIN,TOTAL 0.4 mg/dL (0.2-1.0); TOTAL PROTEIN, SERUM 7.7 g/dL (6.4-8.2)
[2025-02-03 21:11] LABS: ACETAMINOPHEN <10 ug/ml (10-30); ALCOHOL, BLOOD < 3 mg/dL (0-10); SALICYLATE 1.2 mg/dL (2.8-20.0)
[2025-02-03 21:39] LABS: APPEARANCE,URINE SLIGHTLY CLOUDY (CLEAR); BILIRUBIN,URINE NEGATIVE (NEGATIVE); BLOOD, URINE NEGATIVE Ery/uL (NEGATIVE); COLOR,URINE YELLOW (YELLOW); KETONES,URINE 1+ mg/dL (NEGATIVE); LEUKOCYTE ESTERASE ,URINE NEGATIVE (NEGATIVE); NITRITE, URINE NEGATIVE (NEGATIVE); PH,URINE 7.5 (5.0-8.0); PROTEIN,URINE NEGATIVE (NEGATIVE); UGLUCOSE NEGATIVE (NEGATIVE)
[2025-02-03 21:51] LABS: EOSINOPHILS % (MANUAL) 2 % (0-4); LYMPHOCYTES % (MANUAL) 46 % (16-48); MONOCYTES % (MANUAL) 7 % (0-11.0); NEUTROPHILS % (MANUAL) 45 (42-76); PLATELET ESTIMATE DECREASED
[2025-02-03 21:51] LABS: AMPHETAMINE, URINE NEGATIVE (NEGATIVE); BARBITURATE, URINE NEGATIVE (NEGATIVE); BENZODIAZEPINE, URINE NEGATIVE (NEGATIVE); CANNABINOID, URINE NEGATIVE (NEGATIVE); COCCAINE, URINE NEGATIVE (NEGATIVE); PHENCYCLIDINE SCREEN,URINE NEGATIVE (NEGATIVE)
[2025-02-03 21:52] LABS: ANISOCYTOSIS 1+; OVALOCYTES FEW
[2025-02-03 21:54] LABS: OPIATE, URINE POSITIVE (NEGATIVE)
[2025-02-03 22:05] LABS: SQUAMOUS EPITHELIAL CELL,UR Many /HPF (None Seen)
[2025-02-03 22:06] LABS: ADD URINE CULTURE YES; BACTERIA,URINE Moderate /HPF (None Seen)
[2025-02-03] MEDS ORDERED: MINERAL OIL 133 ML (PYXIS) 1 EA ENEMA RC ONE (23:50)
[2025-02-04] MEDS: MINERAL OIL 133 ML (PYXIS) 1 EA ENEMA RC ONE (00:03)
[2025-02-04] MEDS: HYDROCODONE/APAP 5/325MG TABLET PO ONE (07:19)
[2025-02-04] MEDS ORDERED: MELA5TAB PO (08:11)
[2025-02-04] MEDS ORDERED: DOCU100T2 PO (08:11)
[2025-02-04] MEDS ORDERED: METH-647 PO (08:11)
[2025-02-04] MEDS ORDERED: TEMA7.5C12 PO (08:11)
[2025-02-04] MEDS ORDERED: LACO200T2 PO (08:11)
[2025-02-04] MEDS ORDERED: ARIP2TAB3 PO (08:11)
[2025-02-04] MEDS ORDERED: ATOR40TA PO (08:11)
[2025-02-04] MEDS ORDERED: CLON0.5T4 PO (08:11)
[2025-02-04] MEDS ORDERED: BENZ0.5T43 PO (08:11)
[2025-02-04] MEDS ORDERED: DICL100G26 TP (08:11)
[2025-02-04] MEDS ORDERED: ZOLPIDEM TARTRATE 5 MG TABLET PO PRN (16:00)
[2025-02-04] MEDS ORDERED: LORAZEPAM 0.5 MG TABLET PO PRN (16:00)
[2025-02-04] MEDS ORDERED: MAG HYDROX/AL HYDROX/SIMETH 30 ML UDC PO PRN (16:00)
[2025-02-04] MEDS ORDERED: MAGNESIUM HYDROXIDE 30 ML UDC PO PRN ×2 (16:00→18:30)
[2025-02-04 17:00] VITALS: BP 130/72; TEMP 98.2; O2SAT 97
[2025-02-04] MEDS: BLOOD SUGAR DIAGNOSTIC 1 EACH STRIP IN ONE (17:12)
[2025-02-04] MEDS ORDERED: BISACODYL SUPP (10 MG) 10 MG/SUPP.RECT SUPP.RECT RC PRN (18:30)
[2025-02-04] MEDS ORDERED: TEMAZEPAM 7.5 MG CAPSULE PO PRN (18:30)
[2025-02-04] MEDS ORDERED: NITROGLYCERIN 0.4 MG/TAB BOTTLE SL PRN (18:30)
[2025-02-04] MEDS ORDERED: ONDANSETRON 4 MG TAB.RAPDIS PO PRN (19:30)
[2025-02-04 20:00] VITALS: BP 135/78; TEMP 99.1; O2SAT 98
[2025-02-04] MEDS: LACOSAMIDE 50 MG TABLET PO SCH (21:00)
[2025-02-04] MEDS: ATORVASTATIN 40 MG TABLET PO SCH (21:20)
[2025-02-04] MEDS ORDERED: Medication Not On Formulary EA (Melatonin 5 MG) PO SCH (22:00)
[2025-02-05] MEDS: PANTOPRAZOLE 40 MG TABLET.DR PO SCH (07:40)
[2025-02-05 08:00] VITALS: BP 141/72; TEMP 98; O2SAT 96
[2025-02-05 08:18] LABS: ALANINE AMINOTRANSFERASE 14 U/L (12-78); ALBUMIN 2.8 g/dL (3.4-5.0); ALKALINE PHOSPHATASE 73 U/L (46-116); ASPARTATE AMINOTRANSFERASE 6 U/L (15-37); BILIRUBIN,TOTAL 0.5 mg/dL (0.2-1.0); CALCIUM, SERUM 8.8 mg/dL (8.5-10.1); CARBON DIOXIDE 20 mmol/L (21-32); CHLORIDE 101 mmol/L (98-107); GLUCOSE 116 mg/dL (74-106); POTASSIUM 4.3 mmol/L (3.5-5.1); SODIUM SERUM 135 mmol/L (136-145); TOTAL PROTEIN, SERUM 7.5 g/dL (6.4-8.2); UREA NITROGEN, BLOOD 16 mg/dL (7-18)
[2025-02-05 08:20] LABS: CHOLESTEROL 146 mg/dL (<200); HDL CHOLESTEROL 72 mg/dL (40-60); LDL 68 mg/dL (0-99); TRIGLYCERIDES 57 mg/dL (30-150)
[2025-02-05 08:37] LABS: CREATININE < 0.6 mg/dL (0.6-1.3)
[2025-02-05] MEDS: BENZTROPINE MESYLATE (1 MG) 1 MG TABLET PO SCH (09:00)
[2025-02-05] MEDS: CARBIDOPA/LEVODOPA 25/100 MG 1 UDTAB PO SCH (09:00)
[2025-02-05] MEDS: POLYETHYLENE GLYCOL 3350 17 GM POWD.PACK PO SCH (09:00)
[2025-02-05] MEDS: DOCUSATE SODIUM 100 MG CAPSULE PO SCH (09:00)
[2025-02-05] MEDS: DICLOFENAC TOPICAL 100 GM TUBE TP SCH (09:00)
[2025-02-05] MEDS: LEVETIRACETAM (250 MG) 250 MG TABLET PO SCH (09:34)
[2025-02-05] MEDS: MULTIVITAMINS,THERAGRAN 1 UDTAB TABLET PO SCH (09:35)
[2025-02-05] MEDS: APIXABAN 5 MG TABLET PO SCH (09:35)
[2025-02-05] MEDS ORDERED: hydrOXYzine PAMOATE 25 MG CAPSULE PO PRN (10:00)
[2025-02-05] MEDS: ARIPIPRAZOLE 2 MG TABLET PO SCH (10:00)
[2025-02-05] MEDS: DULOXETINE HCL 30 MG CAPSULE.DR PO SCH (10:20)
[2025-02-05] MEDS: GABAPENTIN 300 MG CAPSULE PO SCH (10:24)
[2025-02-05 16:00] VITALS: BP 133/68; TEMP 97.7; O2SAT 99
[2025-02-05 20:12] VITALS: BP 123/71; TEMP 97.7; O2SAT 97
[2025-02-06 08:00] VITALS: BP 112/59; TEMP 98; O2SAT 98
[2025-02-06 16:00] VITALS: BP 118/60; TEMP 97.7; O2SAT 98
[2025-02-06 20:54] VITALS: BP 108/76; TEMP 97.9; O2SAT 97
[2025-02-07 08:00] VITALS: BP 108/68; TEMP 97.7; O2SAT 98
[2025-02-07 16:00] VITALS: BP 136/63; TEMP 97.9; O2SAT 100
[2025-02-07 20:00] VITALS: BP 121/58; TEMP 98.1; O2SAT 98
[2025-02-07 20:40] VITALS: BP 121/58; TEMP 98.1; O2SAT 98
[2025-02-08 08:00] VITALS: BP 113/60; TEMP 97.4; O2SAT 97
[2025-02-08 16:00] VITALS: BP 132/59; TEMP 98.2; O2SAT 99
[2025-02-08 19:51] VITALS: BP 130/65; TEMP 98.3; O2SAT 98
[2025-02-09 08:00] VITALS: BP 136/81; TEMP 98.6; O2SAT 98
[2025-02-09 16:00] VITALS: BP 120/64; TEMP 97.7; O2SAT 98
[2025-02-09 21:04] VITALS: BP 124/72; TEMP 98.2; O2SAT 98
[2025-02-10 08:00] VITALS: BP 122/57; TEMP 98.1; O2SAT 97
[2025-02-10] MEDS ORDERED: DULO30CA52 PO (18:14)
[2025-02-10] MEDS ORDERED: MAG30ORA PO (18:14)
[2025-02-10] MEDS ORDERED: HYDR-3895 PO (18:14)
[2025-02-10] MEDS ORDERED: ARIP2TAB19 PO (18:14)
== END 2025-02-10 14:00 | DRG 885 ==
LOC: ER 19:48 → GPS IN 02-04 14:20 → GPS 02-04 14:51
PROVIDERS: ADMIT Psychiatry & Neurology Psychiatry; ATTEND Nurse Practitioner Family
DX: F33.3 Major depressive disorder, recurrent, severe with psychotic symptoms (principal); E87.1 Hypo-osmolality and hyponatremia; E46 Unspecified protein-calorie malnutrition; D61.818 Other pancytopenia; R45.851 Suicidal ideations; F29 Unspecified psychosis not due to a substance or known physiological condition; I10 Essential (primary) hypertension; G20.A1 Parkinson's disease without dyskinesia, without mention of fluctuations; I48.91 Unspecified atrial fibrillation; K21.9 Gastro-esophageal reflux disease without esophagitis; R56.9 Unspecified convulsions; Z79.01 Long term (current) use of anticoagulants; Z88.0 Allergy status to penicillin; Z86.73 Personal history of transient ischemic attack (TIA), and cerebral infarction without residual deficits; Z20.822 Contact with and (suspected) exposure to COVID-19; Z73.6 Limitation of activities due to disability; F39 Unspecified mood [affective] disorder; R73.9 Hyperglycemia, unspecified; E88.09 Other disorders of plasma-protein metabolism, not elsewhere classified; Z68.32 Body mass index [BMI] 32.0-32.9, adult; F60.3 Borderline personality disorder; F25.1 Schizoaffective disorder, depressive type; D69.6 Thrombocytopenia, unspecified; Z79.899 Other long term (current) drug therapy; D72.819 Decreased white blood cell count, unspecified; D72.820 Lymphocytosis (symptomatic)
CPT/HCPCS: 36415; 76700-TC; 80048-TC; 80053-TC; 80061-TC; 80076-TC; 81001; 82962-TC; 85025-TC; 87086-TC; 97110-TC; 97530-TC; G0480

== ENCOUNTER 2025-02-10 15:34 | Inpatient (IN) | payer MEDICARE, OTHER ==
[~2025-02-10] VITALS: Ht 167.6 cm; Wt 86.2 kg
[~2025-02-10 15:34] MED LIST changes: -ALLA266C2 TP; -ARIP10TA57 PO; +ATOR40TA PO; -BENZ1TAB7 PO; -CEPH-570 PO; +DICL100G26 TP; -DIPH25TA62 PO; -DIVA500T54 PO; +DOCU100T2 PO; -HALO2TAB2 IM; -HYDR-3642 PO; -HYDR-4209 PO; +LACO200T2 PO; -LORA-259 PO; -MAG30ORA PO; +MELA5TAB PO; +METH-647 PO; -NA P133E RC; -SENN8.6T19 PO; -TEMA15CA PO
[2025-02-10 17:58] LABS: EOSINOPHILS # (AUTO) 0.1 K/uL (0.0-0.7); MONOCYTES # (AUTO) 0.2 K/uL (0.1-1.30); MONOCYTES % (AUTO) 10.5 % (2.0-12.0); NEUTROPHILS # (AUTO) 0.6 K/uL (1.8-8.9)
[2025-02-10 18:03] LABS: BASOPHILS % (AUTO) 1.3 % (0.0-2.0); HEMATOCRIT 34 % (33-45); HEMOGLOBIN 11.6 g/dL (11.5-14.8); LYMPHOCYTES % (AUTO) 52.4 % (20.0-44.0); MEAN CORPUSCULAR HEMOGLOBIN 34 PG (26.0-33.0); MEAN CORPUSCULAR HGB CONC 35 g/dl (31.0-36.0); MEAN CORPUSCULAR VOLUME 98 fL (82-100); NEUTROPHILS % (AUTO) 31.8 % (43.0-81.0); PLATELET COUNT (AUTO) 102 K/uL (150-450); RED BLOOD CELL COUNT(AUTO) 3.42 MIL/uL (4.0-5.2); RED CELL DISTRIBUTION WIDTH 14.9 % (11.5-15.0)
[2025-02-10 18:06] LABS: WHITE BLOOD COUNT (AUTO) 1.9 K/uL (4.3-11.0)
[2025-02-10 18:08] LABS: CALCIUM, SERUM 9.3 mg/dL (8.5-10.1); CREATININE 0.7 mg/dL (0.6-1.3)
[2025-02-10 18:14] LABS: ALBUMIN 2.9 g/dL (3.4-5.0); BILIRUBIN,DIRECT 0.1 mg/dL (0.0-0.2); BILIRUBIN,TOTAL 0.3 mg/dL (0.2-1.0); TOTAL PROTEIN, SERUM 7.8 g/dL (6.4-8.2)
[2025-02-10] MEDS ORDERED: DULO30CA52 PO (18:14)
[2025-02-10] MEDS ORDERED: HYDR-3895 PO (18:14)
[2025-02-10] MEDS ORDERED: ARIP2TAB19 PO (18:14)
[2025-02-10] MEDS ORDERED: MAG30ORA PO (18:14)
[2025-02-10] MEDS ORDERED: TEMA7.5C12 PO (18:14)
[2025-02-10 18:29] LABS: BASOPHILS % (MANUAL) 1 % (0.0-2.0); EOSINOPHILS % (MANUAL) 1 % (0-4); LYMPHOCYTES % (MANUAL) 43 % (16-48); MONOCYTES % (MANUAL) 2 % (0-11.0); NEUTROPHILS % (MANUAL) 53 (42-76)
[2025-02-10 18:30] LABS: PLATELET ESTIMATE DECREASED
[2025-02-10 18:38] LABS: APPEARANCE,URINE CLEAR (CLEAR); BILIRUBIN,URINE NEGATIVE (NEGATIVE); BLOOD, URINE TRACE-INTA Ery/uL (NEGATIVE); COLOR,URINE YELLOW (YELLOW); KETONES,URINE NEGATIVE (NEGATIVE); LEUKOCYTE ESTERASE ,URINE 2+ (NEGATIVE); NITRITE, URINE NEGATIVE (NEGATIVE); PROTEIN,URINE NEGATIVE (NEGATIVE); UGLUCOSE NEGATIVE (NEGATIVE)
[2025-02-10 18:39] LABS: ADD URINE CULTURE YES; BACTERIA,URINE Few /HPF (None Seen); SQUAMOUS EPITHELIAL CELL,UR Few /HPF (None Seen)
[2025-02-10] MEDS ORDERED: NITROFURANTOIN/MONOHYDRATE MACROCRYSTALS 100 MG CAPSULE ONE (20:05)
[2025-02-10] MEDS: NITROFURANTOIN/MONOHYDRATE MACROCRYSTALS 100 MG CAPSULE PO ONE (20:11)
[2025-02-10] MEDS ORDERED: Z GUARD REMEDY 4 OZ OINT TP PRN (23:30)
[2025-02-10] MEDS ORDERED: ONDANSETRON HCL/PF 4 MG/2 ML VIAL IVP PRN (23:30)
[2025-02-10] MEDS ORDERED: MAGNESIUM HYDROXIDE 30 ML UDC PO PRN (23:30)
[2025-02-11] MEDS ORDERED: LORAZEPAM INJ 2 MG/ML VIAL IV PRN (01:00)
[2025-02-11] MEDS ORDERED: BISACODYL SUPP (10 MG) 10 MG/SUPP.RECT SUPP.RECT RC PRN (01:00)
[2025-02-11] MEDS ORDERED: TEMAZEPAM 7.5 MG CAPSULE PO PRN (01:00)
[2025-02-11] MEDS ORDERED: hydrOXYzine PAMOATE 25 MG CAPSULE PO PRN (01:00)
[2025-02-11 01:18] VITALS: BP 153/86; TEMP 98.2; O2SAT 98
[2025-02-11] MEDS: DULOXETINE HCL 30 MG CAPSULE.DR PO SCH (08:37)
[2025-02-11] MEDS: LACOSAMIDE 50 MG TABLET PO SCH (08:37)
[2025-02-11] MEDS: PANTOPRAZOLE 40 MG TABLET.DR PO SCH (08:37)
[2025-02-11] MEDS: LEVETIRACETAM (250 MG) 250 MG TABLET PO SCH (08:37)
[2025-02-11] MEDS: NITROFURANTOIN/MONOHYDRATE MACROCRYSTALS 100 MG CAPSULE PO SCH (08:37)
[2025-02-11] MEDS: CARBIDOPA/LEVODOPA 25/100 MG 1 UDTAB PO SCH (08:38)
[2025-02-11] MEDS: MULTIVITAMINS,THERAGRAN 1 UDTAB TABLET PO SCH (08:38)
[2025-02-11] MEDS: ARIPIPRAZOLE 2 MG TABLET PO SCH (08:38)
[2025-02-11] MEDS: GABAPENTIN 300 MG CAPSULE PO SCH (08:38)
[2025-02-11] MEDS: APIXABAN 5 MG TABLET PO SCH (08:41)
[2025-02-11 15:28] LABS: BASOPHILS % (AUTO) 1.1 % (0.0-2.0); EOSINOPHILS % (AUTO) 2.7 % (0.0-6.0); HEMATOCRIT 35 % (33-45); HEMOGLOBIN 12.5 g/dL (11.5-14.8); LYMPHOCYTES # (AUTO) 0.7 K/uL (0.8-4.8); LYMPHOCYTES % (AUTO) 42.1 % (20.0-44.0); MEAN CORPUSCULAR HEMOGLOBIN 35 PG (26.0-33.0); MEAN CORPUSCULAR HGB CONC 36 g/dl (31.0-36.0); MEAN CORPUSCULAR VOLUME 98 fL (82-100); MONOCYTES # (AUTO) 0.2 K/uL (0.1-1.30); MONOCYTES % (AUTO) 10.5 % (2.0-12.0); NEUTROPHILS # (AUTO) 0.7 K/uL (1.8-8.9); NEUTROPHILS % (AUTO) 43.6 % (43.0-81.0); PLATELET COUNT (AUTO) 109 K/uL (150-450); RED BLOOD CELL COUNT(AUTO) 3.56 MIL/uL (4.0-5.2); RED CELL DISTRIBUTION WIDTH 15.2 % (11.5-15.0)
[2025-02-11 15:33] LABS: CALCIUM, SERUM 9.5 mg/dL (8.5-10.1); CREATININE 0.6 mg/dL (0.6-1.3); PHOSPHORUS 3.2 mg/dL (2.5-4.9); POTASSIUM 4.2 mmol/L (3.5-5.1)
[2025-02-11 16:18] LABS: C-REACTIVE PROTEIN 1.57 mg/dL (0.0-0.30); THYROID STIMULATING HORMONE 0.99 uIU/mL (0.358-3.74)
[2025-02-11 16:52] LABS: WHITE BLOOD COUNT (AUTO) 1.7 K/uL (4.3-11.0)
[2025-02-11 20:01] LABS: RHEUMATOID FACTOR SCREEN POSITIVE (NEGATIVE)
[2025-02-11 21:14] LABS: ANISOCYTOSIS 1+; BAND % (MANUAL) 0 % (0.0-5.0); BASOPHILS % (MANUAL) 0 % (0.0-2.0); EOSINOPHILS % (MANUAL) 1 % (0-4); LYMPHOCYTES % (MANUAL) 40 % (16-48); MONOCYTES % (MANUAL) 9 % (0-11.0); NEUTROPHILS % (MANUAL) 50 (42-76); PLATELET ESTIMATE DECREASED
[2025-02-11] MEDS: ATORVASTATIN 40 MG TABLET PO SCH (22:00)
[2025-02-12 07:50] LABS: CALCIUM, SERUM 9.4 mg/dL (8.5-10.1); CREATININE 0.7 mg/dL (0.6-1.3); MAGNESIUM 2.1 mg/dL (1.8-2.4); PHOSPHORUS 3.5 mg/dL (2.5-4.9); POTASSIUM 4.2 mmol/L (3.5-5.1)
[2025-02-12 08:10] LABS: BASOPHILS % (AUTO) 1.6 % (0.0-2.0); EOSINOPHILS # (AUTO) 0.1 K/uL (0.0-0.7); EOSINOPHILS % (AUTO) 4.3 % (0.0-6.0); HEMATOCRIT 33 % (33-45); HEMOGLOBIN 11.3 g/dL (11.5-14.8); LYMPHOCYTES # (AUTO) 1.4 K/uL (0.8-4.8); LYMPHOCYTES % (AUTO) 48.3 % (20.0-44.0); MEAN CORPUSCULAR HEMOGLOBIN 34 PG (26.0-33.0); MEAN CORPUSCULAR HGB CONC 35 g/dl (31.0-36.0); MEAN CORPUSCULAR VOLUME 99 fL (82-100); MONOCYTES # (AUTO) 0.3 K/uL (0.1-1.30); MONOCYTES % (AUTO) 10.9 % (2.0-12.0); NEUTROPHILS % (AUTO) 34.9 % (43.0-81.0); PLATELET COUNT (AUTO) 125 K/uL (150-450); RED BLOOD CELL COUNT(AUTO) 3.31 MIL/uL (4.0-5.2); WHITE BLOOD COUNT (AUTO) 2.9 K/uL (4.3-11.0)
[2025-02-12] MEDS ORDERED: NITR100C15 PO (14:24)
[2025-02-12 16:46] VITALS: BP 147/80; TEMP 97.3; O2SAT 98
[2025-02-12 18:09] LABS: HIV-1 p24 ANTIGEN NON REACTIVE (NONREACTIVE); HIV-1/2 ANTIBODY NON REACTIVE (NONREACTIVE)
[2025-02-13] VITALS: BP 134/69; TEMP 98.1; O2SAT 96
[2025-02-13 06:12] LABS: HEPATITIS B SURFACE AB (QUAL) Reactive (.); IMMUNOGLOBULIN A, SERUM 255 mg/dL (87-352); IMMUNOGLOBULIN G, SERUM 1660 mg/dL (586-1602); IMMUNOGLOBULIN M, SERUM 126 mg/dL (26-217)
[2025-02-13 08:00] VITALS: BP 115/73; TEMP 98.2; O2SAT 98
[2025-02-13] MEDS: OLANZAPINE 10 MG VIAL IM ONE (09:08)
[2025-02-13 11:07] LABS: FOLIC ACID > 20.0 ng/mL (>3.0)
[2025-02-13] MEDS: IV NS 0.9% 1,000 ML IV ONE (13:05)
[2025-02-13 13:11] LABS: FREE KAPPA LT CHAINS SERUM 50.6 mg/L (3.3-19.4); FREE LAMBDA LT CHAIN SERUM 36.7 mg/L (5.7-26.3); KAPPA/LAMBDA RATIO SERUM 1.38 (0.26-1.65)
[2025-02-14] MEDS ORDERED: NITR100C6 PO (07:55)
[2025-02-15 15:09] LABS: *ANA ANTI-CENTROMERE B AB <0.2 AI (0.0-0.9); *ANA ANTI-DNA(DS) AB, QN <1 IU/mL (0-9); *ANA ANTI-JO-1 <0.2 AI (0.0-0.9); *ANA ANTICHROMATIN ANTIBODY <0.2 AI (0.0-0.9); *ANA RNP ANTIBODIES <0.2 AI (0.0-0.9); *ANA SJOGREN'S ANTI-SS-A <0.2 AI (0.0-0.9); *ANA SJOGREN'S ANTI-SS-B <0.2 AI (0.0-0.9); *ANAANTI-SCLERODERMA-70 AB <0.2 AI (0.0-0.9); *ANASMITH AB <0.2 AI (0.0-0.9)
== END 2025-02-13 16:04 | DRG 690 ==
LOC: ER 15:54 → MEDSG1 19:20 → TELE1 02-13 12:59
PROVIDERS: ADMIT Nurse Practitioner Family; ATTEND Nurse Practitioner Acute Care
PROC: 05H933Z Insertion of Infusion Device into Right Brachial Vein, Percutaneous Approach (ICD-10-PCS; principal; 2025-02-10)
PROC: B54MZZA Ultrasonography of Right Upper Extremity Veins, Guidance (ICD-10-PCS; 2025-02-10)
DX: N39.0 Urinary tract infection, site not specified (principal); E44.0 Moderate protein-calorie malnutrition; D61.818 Other pancytopenia; F33.3 Major depressive disorder, recurrent, severe with psychotic symptoms; D68.69 Other thrombophilia; R62.7 Adult failure to thrive; D69.6 Thrombocytopenia, unspecified; F41.9 Anxiety disorder, unspecified; D72.819 Decreased white blood cell count, unspecified; E88.09 Other disorders of plasma-protein metabolism, not elsewhere classified; I10 Essential (primary) hypertension; Z79.01 Long term (current) use of anticoagulants; I48.91 Unspecified atrial fibrillation; Z87.891 Personal history of nicotine dependence; Z88.0 Allergy status to penicillin; Z86.73 Personal history of transient ischemic attack (TIA), and cerebral infarction without residual deficits; I25.10 Atherosclerotic heart disease of native coronary artery without angina pectoris; G62.9 Polyneuropathy, unspecified; Z86.718 Personal history of other venous thrombosis and embolism; R73.9 Hyperglycemia, unspecified; E66.01 Morbid (severe) obesity due to excess calories; D72.820 Lymphocytosis (symptomatic); F60.3 Borderline personality disorder; B95.1 Streptococcus, group B, as the cause of diseases classified elsewhere; Z68.30 Body mass index [BMI] 30.0-30.9, adult; R56.9 Unspecified convulsions; M32.9 Systemic lupus erythematosus, unspecified; Z86.19 Personal history of other infectious and parasitic diseases; G20.A1 Parkinson's disease without dyskinesia, without mention of fluctuations
CPT/HCPCS: 36415; 71045-TC; 73610-TC; 80048-TC; 80076-TC; 81001; 82607-TC; 82728-TC; 82784; 83540-TC; 83735-TC; 84100-TC; 84155; 84165; 84443-TC; 85025-TC; 86140-TC; 86225; 86235; 86334; 86431-TC; 86706; 86803; 87040-TC; 87081-TC; 87086-TC; 87340; 87806; 97110-TC; 97530-TC; 97535-TC; A4223; G0378; J3490; J7030; Q0177

== ENCOUNTER 2025-02-15 01:35 | Inpatient (IN) | payer OTHER, MEDICARE ==
[~2025-02-15] VITALS: Ht 165.1 cm; Wt 88.9 kg
[~2025-02-15 01:35] MED LIST changes: +ARIP2TAB19 PO; +DULO30CA52 PO; +HYDR-3895 PO; +MAG30ORA PO; -MELA5TAB PO; -METH-647 PO; +NITR100C15 PO; +NITR100C6 PO; +TEMA7.5C12 PO
[2025-02-15] MEDS ORDERED: IOHEXOL-350 100 ML VIAL IV ONE (01:51)
[2025-02-15 02:20] LABS: BASOPHILS % (AUTO) 1.2 % (0.0-2.0); EOSINOPHILS # (AUTO) 0.1 K/uL (0.0-0.7); HEMATOCRIT 32 % (33-45); HEMOGLOBIN 11.2 g/dL (11.5-14.8); LYMPHOCYTES # (AUTO) 1.3 K/uL (0.8-4.8); LYMPHOCYTES % (AUTO) 52.1 % (20.0-44.0); MEAN CORPUSCULAR HEMOGLOBIN 35 PG (26.0-33.0); MEAN CORPUSCULAR HGB CONC 35 g/dl (31.0-36.0); MEAN CORPUSCULAR VOLUME 99 fL (82-100); MONOCYTES # (AUTO) 0.2 K/uL (0.1-1.30); MONOCYTES % (AUTO) 6.6 % (2.0-12.0); NEUTROPHILS # (AUTO) 0.9 K/uL (1.8-8.9); NEUTROPHILS % (AUTO) 37.1 % (43.0-81.0); PLATELET COUNT (AUTO) 84 K/uL (150-450); RED BLOOD CELL COUNT(AUTO) 3.24 MIL/uL (4.0-5.2); RED CELL DISTRIBUTION WIDTH 15.6 % (11.5-15.0); WHITE BLOOD COUNT (AUTO) 2.4 K/uL (4.3-11.0)
[2025-02-15 02:24] LABS: CALCIUM, SERUM 9.5 mg/dL (8.5-10.1); CARBON DIOXIDE 28 mmol/L (21-32); CHLORIDE 107 mmol/L (98-107); CREATININE 0.9 mg/dL (0.6-1.3); GLUCOSE 157 mg/dL (74-106); POTASSIUM 4.3 mmol/L (3.5-5.1); SODIUM SERUM 141 mmol/L (136-145); UREA NITROGEN, BLOOD 17 mg/dL (7-18)
[2025-02-15 02:27] LABS: INR 1.09 (0.91-1.10); PARTIAL THROMBOPLASTIN TIME 27.9 SEC (24.3-34.3); PROTHROMBIN TIME 11.5 SECS (9.2-11.1)
[2025-02-15 02:29] LABS: ALANINE AMINOTRANSFERASE 8 U/L (12-78); ALKALINE PHOSPHATASE 65 U/L (46-116); ASPARTATE AMINOTRANSFERASE 11 U/L (15-37); BILIRUBIN,DIRECT 0.1 mg/dL (0.0-0.2); BILIRUBIN,TOTAL 0.3 mg/dL (0.2-1.0); TOTAL PROTEIN, SERUM 7.2 g/dL (6.4-8.2)
[2025-02-15 02:35] LABS: ANISOCYTOSIS 1+; EOSINOPHILS % (MANUAL) 2 % (0-4); LYMPHOCYTES % (MANUAL) 46 % (16-48); MONOCYTES % (MANUAL) 9 % (0-11.0); NEUTROPHILS % (MANUAL) 43 (42-76); PLATELET ESTIMATE DECREASED
[2025-02-15] MEDS ORDERED: ONDANSETRON HCL/PF 4 MG/2 ML VIAL IVP PRN (04:00)
[2025-02-15] MEDS ORDERED: Z GUARD REMEDY 4 OZ OINT TP PRN (04:00)
[2025-02-15] MEDS ORDERED: MAGNESIUM HYDROXIDE 30 ML UDC PO PRN (04:00)
[2025-02-15 04:14] LABS: CHOLESTEROL 123 mg/dL (<200); HDL CHOLESTEROL 57 mg/dL (40-60); LDL 54 mg/dL (0-99); TRIGLYCERIDES 95 mg/dL (30-150)
[2025-02-15 04:58] LABS: APPEARANCE,URINE CLEAR (CLEAR); BILIRUBIN,URINE NEGATIVE (NEGATIVE); BLOOD, URINE NEGATIVE Ery/uL (NEGATIVE); COLOR,URINE YELLOW (YELLOW); KETONES,URINE TRACE mg/dL (NEGATIVE); LEUKOCYTE ESTERASE ,URINE NEGATIVE (NEGATIVE); NITRITE, URINE NEGATIVE (NEGATIVE); PROTEIN,URINE NEGATIVE (NEGATIVE); UGLUCOSE NEGATIVE (NEGATIVE)
[2025-02-15 05:12] LABS: AMPHETAMINE, URINE NEGATIVE (NEGATIVE); BARBITURATE, URINE NEGATIVE (NEGATIVE); BENZODIAZEPINE, URINE NEGATIVE (NEGATIVE); CANNABINOID, URINE NEGATIVE (NEGATIVE); COCCAINE, URINE NEGATIVE (NEGATIVE); OPIATE, URINE NEGATIVE (NEGATIVE); PHENCYCLIDINE SCREEN,URINE NEGATIVE (NEGATIVE)
[2025-02-15] MEDS ORDERED: LORA2VIA6 IM (07:55)
[2025-02-15 10:00] VITALS: BP 106/93; TEMP 96.5; O2SAT 99
[2025-02-15 12:00] VITALS: BP 115/78; TEMP 97.1; O2SAT 100
[2025-02-15 16:00] VITALS: BP 120/62; TEMP 96.5; O2SAT 100
[2025-02-15 20:00] VITALS: BP 142/79; TEMP 97.7; O2SAT 98
[2025-02-15] MEDS: ATORVASTATIN 40 MG TABLET PO SCH (21:13)
[2025-02-15] MEDS: LIDOCAINE 5% (PATCH) 1 EA PATCH TP SCH (23:30)
[2025-02-16] VITALS: BP 133/68; TEMP 97.7; O2SAT 100
[2025-02-16 04:00] VITALS: BP 105/58; TEMP 97.9; O2SAT 97
[2025-02-16 07:01] LABS: CALCIUM, SERUM 9.2 mg/dL (8.5-10.1); CREATININE 0.7 mg/dL (0.6-1.3); MAGNESIUM 2.1 mg/dL (1.8-2.4); PHOSPHORUS 3.3 mg/dL (2.5-4.9); POTASSIUM 4.3 mmol/L (3.5-5.1)
[2025-02-16 07:14] LABS: THYROID STIMULATING HORMONE 1.44 uIU/mL (0.358-3.74)
[2025-02-16 08:00] VITALS: BP 124/64; TEMP 97.3; O2SAT 97
[2025-02-16 08:12] LABS: BASOPHILS % (AUTO) 1.8 % (0.0-2.0); EOSINOPHILS # (AUTO) 0.1 K/uL (0.0-0.7); EOSINOPHILS % (AUTO) 2.6 % (0.0-6.0); HEMATOCRIT 39 % (33-45); HEMOGLOBIN 13.3 g/dL (11.5-14.8); LYMPHOCYTES # (AUTO) 1.4 K/uL (0.8-4.8); LYMPHOCYTES % (AUTO) 52.6 % (20.0-44.0); MEAN CORPUSCULAR HEMOGLOBIN 34 PG (26.0-33.0); MEAN CORPUSCULAR HGB CONC 34 g/dl (31.0-36.0); MEAN CORPUSCULAR VOLUME 100 fL (82-100); MONOCYTES # (AUTO) 0.2 K/uL (0.1-1.30); MONOCYTES % (AUTO) 8.7 % (2.0-12.0); NEUTROPHILS # (AUTO) 0.9 K/uL (1.8-8.9); NEUTROPHILS % (AUTO) 34.3 % (43.0-81.0); PLATELET COUNT (AUTO) 83 K/uL (150-450); RED BLOOD CELL COUNT(AUTO) 3.87 MIL/uL (4.0-5.2); RED CELL DISTRIBUTION WIDTH 15.8 % (11.5-15.0); WHITE BLOOD COUNT (AUTO) 2.6 K/uL (4.3-11.0)
[2025-02-16 12:00] VITALS: TEMP 98
[2025-02-16] MEDS ORDERED: hydrOXYzine PAMOATE 25 MG CAPSULE PO PRN ×2 (13:00→15:30)
[2025-02-16 15:22] LABS: EOSINOPHILS % (MANUAL) 1 % (0-4); LYMPHOCYTES % (MANUAL) 50 % (16-48); MONOCYTES % (MANUAL) 1 % (0-11.0); NEUTROPHILS % (MANUAL) 48 (42-76)
[2025-02-16 15:23] LABS: ANISOCYTOSIS 1+; PLATELET ESTIMATE DECREASED
[2025-02-16] MEDS ORDERED: TEMAZEPAM 7.5 MG CAPSULE PO PRN (15:30)
[2025-02-16] MEDS ORDERED: DULOXETINE HCL 30 MG CAPSULE.DR PO SCH (15:30)
[2025-02-16] MEDS ORDERED: BISACODYL SUPP (10 MG) 10 MG/SUPP.RECT SUPP.RECT RC PRN (15:30)
[2025-02-16 16:00] VITALS: BP 127/75; TEMP 97.9; O2SAT 98
[2025-02-16] MEDS: GABAPENTIN 300 MG CAPSULE PO SCH (16:27)
[2025-02-16] MEDS: APIXABAN 5 MG TABLET PO SCH (16:27)
[2025-02-16] MEDS: DOCUSATE SODIUM 100 MG CAPSULE PO SCH (16:28)
[2025-02-16] MEDS: CARBIDOPA/LEVODOPA 25/100 MG 1 UDTAB PO SCH (16:28)
[2025-02-16] MEDS: LEVETIRACETAM (250 MG) 250 MG TABLET PO SCH (16:28)
[2025-02-16] MEDS ORDERED: DICLOFENAC SODIUM 2 GM TP SCH (17:00)
[2025-02-16 20:00] VITALS: BP 123/71; TEMP 98.4; O2SAT 98
[2025-02-16] MEDS: LACOSAMIDE 50 MG TABLET PO SCH (21:15)
[2025-02-16] MEDS ORDERED: ATORVASTATIN 40 MG TABLET PO SCH (22:00)
[2025-02-17 04:00] VITALS: BP 96/60; TEMP 98.4; O2SAT 98
[2025-02-17 08:00] VITALS: BP 101/63; TEMP 97.8; O2SAT 96
[2025-02-17] MEDS: PANTOPRAZOLE 40 MG TABLET.DR PO SCH (08:20)
[2025-02-17] MEDS: MULTIVITAMINS,THERAGRAN 1 UDTAB TABLET PO SCH (08:42)
[2025-02-17] MEDS: DULOXETINE HCL 30 MG CAPSULE.DR PO SCH (08:44)
[2025-02-17] MEDS: ARIPIPRAZOLE 5 MG TABLET PO SCH (08:44)
[2025-02-17] MEDS ORDERED: ARIPIPRAZOLE 2 MG TABLET PO SCH (09:00)
== END 2025-02-17 16:02 | DRG 347 ==
LOC: ER 01:46 → TELE1 07:40 → MEDSG1 02-16 10:10
PROVIDERS: ADMIT Nurse Practitioner Acute Care; ATTEND Internal Medicine
DX: M43.12 Spondylolisthesis, cervical region (principal); D68.59 Other primary thrombophilia; D69.6 Thrombocytopenia, unspecified; E44.1 Mild protein-calorie malnutrition; F33.3 Major depressive disorder, recurrent, severe with psychotic symptoms; E88.09 Other disorders of plasma-protein metabolism, not elsewhere classified; F25.1 Schizoaffective disorder, depressive type; D72.819 Decreased white blood cell count, unspecified; E11.9 Type 2 diabetes mellitus without complications; E66.01 Morbid (severe) obesity due to excess calories; I10 Essential (primary) hypertension; Z86.73 Personal history of transient ischemic attack (TIA), and cerebral infarction without residual deficits; I25.10 Atherosclerotic heart disease of native coronary artery without angina pectoris; I48.91 Unspecified atrial fibrillation; Z79.01 Long term (current) use of anticoagulants; Z88.0 Allergy status to penicillin; Z87.891 Personal history of nicotine dependence; F41.9 Anxiety disorder, unspecified; F60.3 Borderline personality disorder; Z20.822 Contact with and (suspected) exposure to COVID-19; Z68.32 Body mass index [BMI] 32.0-32.9, adult
CPT/HCPCS: 36415; 70450-TC; 71045-TC; 72125-TC; 80048-TC; 80061-TC; 80076-TC; 82962-TC; 83735-TC; 84100-TC; 84443-TC; 84484-TC; 85025-TC; 85730-TC; 87081-TC; 92526; 92611-TC; 97110-TC; 97530-TC; 97535-TC; A4217; G0378; Q9967

== ENCOUNTER 2025-03-08 16:19 | Inpatient (IN) | payer MEDICARE, OTHER ==
[~2025-03-08] VITALS: Ht 165.1 cm; Wt 92.5 kg
[~2025-03-08 16:19] MED LIST changes: +LORA2VIA6 IM; -NITR100C15 PO
[2025-03-08] MEDS ORDERED: MAG-55 PO (17:36)
[2025-03-08 18:06] LABS: HEMATOCRIT 31 % (33-45); HEMOGLOBIN 10.7 g/dL (11.5-14.8); MEAN CORPUSCULAR HEMOGLOBIN 35 PG (26.0-33.0); MEAN CORPUSCULAR HGB CONC 35 g/dl (31.0-36.0); MEAN CORPUSCULAR VOLUME 101 fL (82-100); PLATELET COUNT (AUTO) 67 K/uL (150-450); RED BLOOD CELL COUNT(AUTO) 3.03 MIL/uL (4.0-5.2)
[2025-03-08 18:07] LABS: BASOPHILS % (AUTO) 0.6 % (0.0-2.0); CALCIUM, SERUM 9.3 mg/dL (8.5-10.1); CARBON DIOXIDE 29 mmol/L (21-32); CHLORIDE 104 mmol/L (98-107); CREATININE 0.8 mg/dL (0.6-1.3); EOSINOPHILS % (AUTO) 3.8 % (0.0-6.0); GLUCOSE 166 mg/dL (74-106); LYMPHOCYTES % (AUTO) 61.9 % (20.0-44.0); MONOCYTES % (AUTO) 5.1 % (2.0-12.0); NEUTROPHILS % (AUTO) 28.6 % (43.0-81.0); POTASSIUM 4.2 mmol/L (3.5-5.1); SODIUM SERUM 138 mmol/L (136-145); UREA NITROGEN, BLOOD 17 mg/dL (7-18)
[2025-03-08 18:21] LABS: NT-PRO BNP 79 pg/mL (0-125)
[2025-03-08 18:34] LABS: EOSINOPHILS % (MANUAL) 2 % (0-4); LYMPHOCYTES % (MANUAL) 57 % (16-48); MONOCYTES % (MANUAL) 4 % (0-11.0); NEUTROPHILS % (MANUAL) 37 (42-76); PLATELET ESTIMATE DECREASED
[2025-03-08 18:35] LABS: ANISOCYTOSIS 1+
[2025-03-08] MEDS ORDERED: ONDANSETRON HCL/PF 4 MG/2 ML VIAL ONE (19:39)
[2025-03-08] MEDS: ONDANSETRON HCL/PF - ER 4 MG/2 ML VIAL IV ONE (19:43)
[2025-03-08] MEDS ORDERED: Z GUARD REMEDY 4 OZ OINT TP PRN (21:00)
[2025-03-08] MEDS ORDERED: HOME MED MISCELLANEOUS XX SCH ×4 (21:00)
[2025-03-08] MEDS ORDERED: NITROGLYCERIN 0.4 MG/TAB BOTTLE SL PRN (21:00)
[2025-03-08] MEDS ORDERED: ONDANSETRON HCL/PF 4 MG/2 ML VIAL IVP PRN (21:00)
[2025-03-08] MEDS ORDERED: hydrOXYzine PAMOATE 25 MG CAPSULE PO PRN (21:00)
[2025-03-08] MEDS ORDERED: MAGNESIUM HYDROXIDE 30 ML UDC PO PRN (21:00)
[2025-03-08] MEDS ORDERED: BISACODYL SUPP (10 MG) 10 MG/SUPP.RECT SUPP.RECT RC PRN (21:00)
[2025-03-08] MEDS: ATORVASTATIN 40 MG TABLET PO SCH (21:50)
[2025-03-08] MEDS: MORPHINE SULFATE INJ 2 MG/ML DISP.SYRIN IV PRN (21:51)
[2025-03-09] VITALS: BP 113/62; TEMP 97.5; O2SAT 100
[2025-03-09 04:00] VITALS: BP 100/57; TEMP 97.5; O2SAT 99
[2025-03-09] MEDS ORDERED: MAG HYDROX/AL HYDROX/SIMETH 30 ML UDC PO PRN (05:00)
[2025-03-09 08:00] VITALS: BP 89/52; TEMP 97.9; O2SAT 100
[2025-03-09 08:07] LABS: BASOPHILS % (AUTO) 0.5 % (0.0-2.0); EOSINOPHILS # (AUTO) 0.1 K/uL (0.0-0.7); EOSINOPHILS % (AUTO) 3.7 % (0.0-6.0); HEMATOCRIT 32 % (33-45); HEMOGLOBIN 11.1 g/dL (11.5-14.8); LYMPHOCYTES # (AUTO) 1.2 K/uL (0.8-4.8); LYMPHOCYTES % (AUTO) 60.6 % (20.0-44.0); MEAN CORPUSCULAR HEMOGLOBIN 35 PG (26.0-33.0); MEAN CORPUSCULAR HGB CONC 35 g/dl (31.0-36.0); MEAN CORPUSCULAR VOLUME 101 fL (82-100); MONOCYTES # (AUTO) 0.1 K/uL (0.1-1.30); MONOCYTES % (AUTO) 4.2 % (2.0-12.0); NEUTROPHILS # (AUTO) 0.6 K/uL (1.8-8.9); PLATELET COUNT (AUTO) 58 K/uL (150-450); RED BLOOD CELL COUNT(AUTO) 3.19 MIL/uL (4.0-5.2)
[2025-03-09 08:08] LABS: CALCIUM, SERUM 9.4 mg/dL (8.5-10.1); CREATININE 0.8 mg/dL (0.6-1.3); MAGNESIUM 1.9 mg/dL (1.8-2.4); PHOSPHORUS 4.2 mg/dL (2.5-4.9); POTASSIUM 4.4 mmol/L (3.5-5.1)
[2025-03-09] MEDS: LEVETIRACETAM (250 MG) 250 MG TABLET PO SCH (08:20)
[2025-03-09] MEDS: DOCUSATE SODIUM 100 MG CAPSULE PO SCH (08:20)
[2025-03-09] MEDS: PANTOPRAZOLE 40 MG TABLET.DR PO SCH (08:20)
[2025-03-09] MEDS: MULTIVITAMINS,THERAGRAN 1 UDTAB TABLET PO SCH (08:21)
[2025-03-09] MEDS: GABAPENTIN 100 MG CAPSULE PO SCH (08:21)
[2025-03-09] MEDS: DULOXETINE HCL 30 MG CAPSULE.DR PO SCH (08:31)
[2025-03-09] MEDS: CARBIDOPA/LEVODOPA 25/100 MG 1 UDTAB PO SCH (08:31)
[2025-03-09] MEDS: LACOSAMIDE 50 MG TABLET PO SCH (08:31)
[2025-03-09] MEDS: ARIPIPRAZOLE 2 MG TABLET PO SCH (08:32)
[2025-03-09] MEDS: POLYETHYLENE GLYCOL 3350 17 GM POWD.PACK PO SCH (08:32)
[2025-03-09] MEDS: DICLOFENAC TOPICAL 100 GM TUBE TP SCH (08:41)
[2025-03-09] MEDS ORDERED: APIXABAN 5 MG TABLET PO SCH (09:00)
[2025-03-09 11:25] LABS: EOSINOPHILS % (MANUAL) 2 % (0-4); LYMPHOCYTES % (MANUAL) 58 % (16-48); MONOCYTES % (MANUAL) 2 % (0-11.0); NEUTROPHILS % (MANUAL) 38 (42-76); PLATELET ESTIMATE DECREASED
[2025-03-09 11:26] LABS: ANISOCYTOSIS 1+; OVALOCYTES 1+
[2025-03-09 12:00] VITALS: BP 108/62; TEMP 97.9; O2SAT 98
[2025-03-09 15:23] LABS: APPEARANCE,URINE TURBID (CLEAR); BILIRUBIN,URINE NEGATIVE (NEGATIVE); BLOOD, URINE NEGATIVE Ery/uL (NEGATIVE); COLOR,URINE YELLOW (YELLOW); KETONES,URINE NEGATIVE (NEGATIVE); LEUKOCYTE ESTERASE ,URINE TRACE (NEGATIVE); NITRITE, URINE NEGATIVE (NEGATIVE); PH,URINE 8.5 (5.0-8.0); PROTEIN,URINE NEGATIVE (NEGATIVE); UGLUCOSE NEGATIVE (NEGATIVE); UROBILINOGEN,URINE 0.2 EU/dL (0.2)
[2025-03-09 15:30] LABS: ADD URINE CULTURE NO; BACTERIA,URINE Few /HPF (None Seen); RBC,URINE 0-2 /HPF (0-2); SQUAMOUS EPITHELIAL CELL,UR 0-2 /HPF (None Seen); URINE AMORPHOUS PHOSPHATES Few /HPF (None Seen); WBC,URINE 0-2 /HPF (0-3)
[2025-03-09 15:31] LABS: TRIPLE PHOSPHATE CRYSTAL,UR Many /HPF (None Seen)
[2025-03-09 16:00] VITALS: BP 101/54; TEMP 97.7; O2SAT 96
[2025-03-09 20:00] VITALS: BP 93/66; TEMP 97.3; O2SAT 94
[2025-03-10] VITALS: BP 113/72; TEMP 97.9; O2SAT 99
[2025-03-10 04:00] VITALS: BP 93/64; TEMP 98; O2SAT 100
[2025-03-10 08:00] VITALS: BP 109/66; TEMP 97.7; O2SAT 96
[2025-03-10 12:00] VITALS: BP 95/55; TEMP 98; O2SAT 99
== END 2025-03-10 16:09 | DRG 313 ==
LOC: ER 16:22 → TELE1 20:38
PROVIDERS: ADMIT Nurse Practitioner Acute Care; ATTEND Nurse Practitioner Family
DX: R07.89 Other chest pain (principal); E44.1 Mild protein-calorie malnutrition; D61.818 Other pancytopenia; D68.69 Other thrombophilia; F33.3 Major depressive disorder, recurrent, severe with psychotic symptoms; G20.A1 Parkinson's disease without dyskinesia, without mention of fluctuations; G40.909 Epilepsy, unspecified, not intractable, without status epilepticus; E11.9 Type 2 diabetes mellitus without complications; E66.9 Obesity, unspecified; E88.09 Other disorders of plasma-protein metabolism, not elsewhere classified; F60.3 Borderline personality disorder; I10 Essential (primary) hypertension; I25.10 Atherosclerotic heart disease of native coronary artery without angina pectoris; I48.91 Unspecified atrial fibrillation; F41.9 Anxiety disorder, unspecified; Z79.899 Other long term (current) drug therapy; Z86.711 Personal history of pulmonary embolism; Z86.718 Personal history of other venous thrombosis and embolism; Z86.73 Personal history of transient ischemic attack (TIA), and cerebral infarction without residual deficits; Z87.891 Personal history of nicotine dependence; Z88.0 Allergy status to penicillin; Z79.01 Long term (current) use of anticoagulants; Z95.828 Presence of other vascular implants and grafts; M32.9 Systemic lupus erythematosus, unspecified; Z68.33 Body mass index [BMI] 33.0-33.9, adult; Z76.5 Malingerer [conscious simulation]
CPT/HCPCS: 36415; 71045-TC; 80048-TC; 80061-TC; 81001; 83735-TC; 83880; 84100-TC; 84484-TC; 85025-TC; 85378-TC; 87081-TC; G0378; J2270; J2405

== ENCOUNTER 2025-03-16 15:26 | Inpatient (IN) | payer MEDICARE, OTHER ==
[~2025-03-16] VITALS: Ht 165.1 cm; Wt 92.5 kg
[~2025-03-16 15:26] MED LIST changes: -LORA2VIA6 IM; +MAG-55 PO; -MAG30ORA PO; -NITR100C6 PO; -TEMA7.5C12 PO
[2025-03-16 16:58] LABS: BASOPHILS % (AUTO) 1.7 % (0.0-2.0); EOSINOPHILS # (AUTO) 0.1 K/uL (0.0-0.7); HEMATOCRIT 32 % (33-45); HEMOGLOBIN 10.8 g/dL (11.5-14.8); LYMPHOCYTES % (AUTO) 58.8 % (20.0-44.0); MEAN CORPUSCULAR HEMOGLOBIN 35 PG (26.0-33.0); MEAN CORPUSCULAR HGB CONC 34 g/dl (31.0-36.0); MEAN CORPUSCULAR VOLUME 102 fL (82-100); MONOCYTES # (AUTO) 0.1 K/uL (0.1-1.30); MONOCYTES % (AUTO) 5.3 % (2.0-12.0); NEUTROPHILS # (AUTO) 0.5 K/uL (1.8-8.9); NEUTROPHILS % (AUTO) 31.2 % (43.0-81.0); PLATELET COUNT (AUTO) 65 K/uL (150-450); RED CELL DISTRIBUTION WIDTH 16.1 % (11.5-15.0)
[2025-03-16 17:02] LABS: WHITE BLOOD COUNT (AUTO) 1.7 K/uL (4.3-11.0)
[2025-03-16 17:11] LABS: CALCIUM, SERUM 9.1 mg/dL (8.5-10.1); CARBON DIOXIDE 30 mmol/L (21-32); CHLORIDE 104 mmol/L (98-107); CREATININE 0.8 mg/dL (0.6-1.3); GLUCOSE 214 mg/dL (74-106); POTASSIUM 4.4 mmol/L (3.5-5.1); SODIUM SERUM 137 mmol/L (136-145); UREA NITROGEN, BLOOD 17 mg/dL (7-18)
[2025-03-16 17:12] LABS: ALANINE AMINOTRANSFERASE 18 U/L (12-78); ALBUMIN 2.9 g/dL (3.4-5.0); ALKALINE PHOSPHATASE 78 U/L (46-116); ASPARTATE AMINOTRANSFERASE 17 U/L (15-37); BILIRUBIN,DIRECT 0.1 mg/dL (0.0-0.2); BILIRUBIN,TOTAL 0.2 mg/dL (0.2-1.0); LIPASE 13 U/L (16-77); TOTAL PROTEIN, SERUM 7.6 g/dL (6.4-8.2)
[2025-03-16] MEDS ORDERED: IOHEXOL-300 100 ML VIAL IV ONE ×2 (17:25→17:32)
[2025-03-16] MEDS ORDERED: CT SWABBABLE VALVE TRANS SET 1 EA INFUS.SET MC ONE (17:25)
[2025-03-16] MEDS ORDERED: IV NS 0.9% 250 ML IV ONE (17:25)
[2025-03-16 17:27] LABS: BILIRUBIN,URINE Negative (NEGATIVE); BLOOD, URINE Trace-intact Ery/uL (NEGATIVE); COLOR,URINE YELLOW (YELLOW); KETONES,URINE Trace mg/dL (NEGATIVE); LEUKOCYTE ESTERASE ,URINE Large (NEGATIVE); PH,URINE 8.5 (5.0-8.0); PROTEIN,URINE Trace mg/dl (NEGATIVE); UGLUCOSE Negative (NEGATIVE)
[2025-03-16 17:31] LABS: APPEARANCE,URINE CLOUDY (CLEAR); NITRITE, URINE POSITIVE (NEGATIVE)
[2025-03-16 17:34] LABS: ADD URINE CULTURE YES; BACTERIA,URINE 2+ /HPF (None Seen); WBC,URINE 21-50 /HPF (0-3)
[2025-03-16 17:35] LABS: URINE AMORPHOUS PHOSPHATES Moderate /HPF (None Seen)
[2025-03-16] MEDS ORDERED: MORPHINE SULFATE INJ 2 MG/ML DISP.SYRIN ONE (18:53)
[2025-03-16] MEDS: MORPHINE SULFATE INJ 2 MG/ML DISP.SYRIN IV ONE (19:19)
[2025-03-16] MEDS: LEVOFLOXACIN 500 MG /D5W 100ML 500 MG/100 ML PIGGYBACK IV ONE (19:40)
[2025-03-16 20:20] LABS: ANISOCYTOSIS 1+; EOSINOPHILS % (MANUAL) 3 % (0-4); LYMPHOCYTES % (MANUAL) 52 % (16-48); MONOCYTES % (MANUAL) 3 % (0-11.0); NEUTROPHILS % (MANUAL) 42 (42-76); PLATELET ESTIMATE DECREASED
[2025-03-16 20:34] VITALS: BP 124/73; TEMP 97.7; O2SAT 98
[2025-03-16 21:53] VITALS: BP 124/73; TEMP 97.7; O2SAT 98
[2025-03-16] MEDS ORDERED: MAG HYDROX/AL HYDROX/SIMETH 30 ML UDC PO PRN (22:30)
[2025-03-16] MEDS ORDERED: ZOLPIDEM TARTRATE 5 MG TABLET PO PRN (22:30)
[2025-03-16] MEDS ORDERED: MAGNESIUM HYDROXIDE 30 ML UDC PO PRN (22:30)
[2025-03-16] MEDS ORDERED: ENOXAPARIN SODIUM 40 MG/0.4 ML DISP.SYRIN SQ SCH (22:30)
[2025-03-16] MEDS ORDERED: ACETAMINOPHEN 325 MG TABLET PO PRN (22:30)
[2025-03-16] MEDS ORDERED: KETOROLAC TROMETHAMINE INJ 30 MG/ML VIAL IM PRN (22:30)
[2025-03-16] MEDS ORDERED: Z GUARD REMEDY 4 OZ OINT TP PRN (22:30)
[2025-03-16] MEDS: IV 1/2NS 1000 ML 1,000 ML IV PRN (22:49)
[2025-03-17] VITALS (7 sets, daily range): BP systolic 96–114; BP diastolic 52–68; TEMP 97.3–97.7; O2SAT 97–98
[2025-03-17] MEDS ORDERED: IV NS 0.9% 1,000 ML BAG IV PRN ×3 (00:30)
[2025-03-17] MEDS: IV NS 0.9% 1,000 ML IV SCH (00:38)
[2025-03-17] MEDS: PANTOPRAZOLE 40 MG TABLET.DR PO SCH (08:51)
[2025-03-17 13:09] LABS: BASOPHILS % (AUTO) 1.2 % (0.0-2.0); EOSINOPHILS # (AUTO) 0.1 K/uL (0.0-0.7); EOSINOPHILS % (AUTO) 2.8 % (0.0-6.0); HEMATOCRIT 30 % (33-45); HEMOGLOBIN 10.2 g/dL (11.5-14.8); LYMPHOCYTES % (AUTO) 56.5 % (20.0-44.0); MEAN CORPUSCULAR HEMOGLOBIN 34 PG (26.0-33.0); MEAN CORPUSCULAR HGB CONC 34 g/dl (31.0-36.0); MEAN CORPUSCULAR VOLUME 102 fL (82-100); MONOCYTES # (AUTO) 0.1 K/uL (0.1-1.30); MONOCYTES % (AUTO) 5.5 % (2.0-12.0); NEUTROPHILS # (AUTO) 0.6 K/uL (1.8-8.9); PLATELET COUNT (AUTO) 53 K/uL (150-450); RED BLOOD CELL COUNT(AUTO) 2.97 MIL/uL (4.0-5.2); RED CELL DISTRIBUTION WIDTH 15.8 % (11.5-15.0)
[2025-03-17 13:12] LABS: WHITE BLOOD COUNT (AUTO) 1.8 K/uL (4.3-11.0)
[2025-03-17 13:24] LABS: CREATININE 0.7 mg/dL (0.6-1.3); MAGNESIUM 1.9 mg/dL (1.8-2.4); PHOSPHORUS 3.5 mg/dL (2.5-4.9); POTASSIUM 4.2 mmol/L (3.5-5.1)
[2025-03-17] MEDS: MORPHINE SULFATE INJ 2 MG/ML DISP.SYRIN IV PRN (14:17)
[2025-03-17 16:36] LABS: BAND % (MANUAL) 1 % (0.0-5.0); BASOPHILS % (MANUAL) 1 % (0.0-2.0); EOSINOPHILS % (MANUAL) 1 % (0-4); LYMPHOCYTES % (MANUAL) 56 % (16-48); NEUTROPHILS % (MANUAL) 41 (42-76); PLATELET ESTIMATE DECREASED
[2025-03-17 16:37] LABS: ANISOCYTOSIS 1+
[2025-03-17] MEDS: DOCUSATE SODIUM 100 MG CAPSULE PO SCH (20:22)
[2025-03-17] MEDS: LEVOFLOXACIN 500 MG /D5W 100ML 500 MG in PREMIX 1 EA IV SCH (20:22)
[2025-03-18] MEDS: ONDANSETRON HCL/PF 4 MG/2 ML VIAL IVP PRN (06:42)
[2025-03-18 07:00] VITALS: BP 122/63; TEMP 97.5; O2SAT 99
[2025-03-18] MEDS ORDERED: CIPR-262 PO (12:06)
== END 2025-03-18 16:26 | DRG 699 ==
LOC: ER 15:28 → TELE 19:59 → MED 03-18
PROVIDERS: ADMIT Student in an Organized Health Care Education/Training Program; ATTEND Internal Medicine
DX: T83.031A Leakage of indwelling urethral catheter, initial encounter (principal); D61.818 Other pancytopenia; N39.0 Urinary tract infection, site not specified; D68.59 Other primary thrombophilia; E44.0 Moderate protein-calorie malnutrition; M94.0 Chondrocostal junction syndrome [Tietze]; G40.909 Epilepsy, unspecified, not intractable, without status epilepticus; I48.91 Unspecified atrial fibrillation; M32.9 Systemic lupus erythematosus, unspecified; E66.9 Obesity, unspecified; I10 Essential (primary) hypertension; I25.10 Atherosclerotic heart disease of native coronary artery without angina pectoris; Z86.718 Personal history of other venous thrombosis and embolism; Z86.73 Personal history of transient ischemic attack (TIA), and cerebral infarction without residual deficits; Z88.0 Allergy status to penicillin; Z87.891 Personal history of nicotine dependence; I95.9 Hypotension, unspecified; F31.9 Bipolar disorder, unspecified; F20.9 Schizophrenia, unspecified; F41.9 Anxiety disorder, unspecified; G20.A1 Parkinson's disease without dyskinesia, without mention of fluctuations; Z68.33 Body mass index [BMI] 33.0-33.9, adult; B96.89 Other specified bacterial agents as the cause of diseases classified elsewhere; Y73.8 Miscellaneous gastroenterology and urology devices associated with adverse incidents, not elsewhere classified; Z79.01 Long term (current) use of anticoagulants; Y84.6 Urinary catheterization as the cause of abnormal reaction of the patient, or of later complication, without mention of misadventure at the time of the procedure; Y92.129 Unspecified place in nursing home as the place of occurrence of the external cause; B96.20 Unspecified Escherichia coli [E. coli] as the cause of diseases classified elsewhere; B96.4 Proteus (mirabilis) (morganii) as the cause of diseases classified elsewhere
CPT/HCPCS: 36415; 71045-TC; 80048-TC; 80076-TC; 81001; 83690-TC; 83735-TC; 84100-TC; 84484-TC; 85025-TC; 87081-TC; 87086-TC; 87186-TC; A4216; A4223; G0378; J1956; J2270; J2405; J3490; J7030; J7050; Q9967

== ENCOUNTER 2025-03-24 02:02 | Inpatient (IN) | payer MEDICARE, MEDICAID ==
[~2025-03-24] VITALS: Ht 167.6 cm; Wt 95.5 kg
[~2025-03-24 02:02] MED LIST changes: +CIPR-262 PO; -DOCU100T2 PO; -MAGN400O6 PO; -PANT40TA49 PO
[2025-03-24 04:44] LABS: APPEARANCE,URINE CLEAR (CLEAR); BILIRUBIN,URINE NEGATIVE (NEGATIVE); BLOOD, URINE TRACE-INTA Ery/uL (NEGATIVE); COLOR,URINE YELLOW (YELLOW); KETONES,URINE NEGATIVE (NEGATIVE); LEUKOCYTE ESTERASE ,URINE 1+ (NEGATIVE); NITRITE, URINE NEGATIVE (NEGATIVE); PROTEIN,URINE NEGATIVE (NEGATIVE); UGLUCOSE NEGATIVE (NEGATIVE)
[2025-03-24 05:03] LABS: ADD URINE CULTURE YES; BACTERIA,URINE Many /HPF (None Seen); SQUAMOUS EPITHELIAL CELL,UR Many /HPF (None Seen); WBC,URINE 21-50 /HPF (0-3)
[2025-03-24] MEDS ORDERED: MORPHINE SULFATE INJ 2 MG/ML DISP.SYRIN ONE (05:59)
[2025-03-24] MEDS ORDERED: Z GUARD REMEDY 4 OZ OINT TP PRN ×2 (06:00→17:30)
[2025-03-24] MEDS ORDERED: MAG HYDROX/AL HYDROX/SIMETH 30 ML UDC PO PRN (06:00)
[2025-03-24] MEDS ORDERED: ONDANSETRON HCL/PF 4 MG/2 ML VIAL IVP PRN (06:00)
[2025-03-24] MEDS ORDERED: MAGNESIUM HYDROXIDE 30 ML UDC PO PRN (06:00)
[2025-03-24] MEDS: MORPHINE SULFATE INJ 2 MG/ML DISP.SYRIN IV ONE (06:08)
[2025-03-24] MEDS: ONDANSETRON HCL/PF - ER 4 MG/2 ML VIAL IV ONE (06:08)
[2025-03-24 06:21] LABS: HEMOGLOBIN 10.1 g/dL (11.5-14.8); MEAN CORPUSCULAR HEMOGLOBIN 35 PG (26.0-33.0); MEAN CORPUSCULAR HGB CONC 34 g/dl (31.0-36.0)
[2025-03-24 06:22] LABS: CALCIUM, SERUM 9.2 mg/dL (8.5-10.1); CREATININE 0.6 mg/dL (0.6-1.3); POTASSIUM 4.5 mmol/L (3.5-5.1)
[2025-03-24 06:26] LABS: BASOPHILS % (AUTO) 1.1 % (0.0-2.0); EOSINOPHILS # (AUTO) 0.1 K/uL (0.0-0.7); EOSINOPHILS % (AUTO) 3.3 % (0.0-6.0); HEMATOCRIT 29 % (33-45); LYMPHOCYTES # (AUTO) 1.1 K/uL (0.8-4.8); LYMPHOCYTES % (AUTO) 55.9 % (20.0-44.0); MEAN CORPUSCULAR VOLUME 102 fL (82-100); MONOCYTES # (AUTO) 0.1 K/uL (0.1-1.30); MONOCYTES % (AUTO) 6.5 % (2.0-12.0); NEUTROPHILS # (AUTO) 0.6 K/uL (1.8-8.9); NEUTROPHILS % (AUTO) 33.2 % (43.0-81.0); PLATELET COUNT (AUTO) 57 K/uL (150-450); RED BLOOD CELL COUNT(AUTO) 2.88 MIL/uL (4.0-5.2); RED CELL DISTRIBUTION WIDTH 16.1 % (11.5-15.0)
[2025-03-24 06:28] LABS: WHITE BLOOD COUNT (AUTO) 1.9 K/uL (4.3-11.0)
[2025-03-24 06:34] LABS: BILIRUBIN,TOTAL 0.4 mg/dL (0.2-1.0); TOTAL PROTEIN, SERUM 7.2 g/dL (6.4-8.2)
[2025-03-24 06:57] LABS: EOSINOPHILS % (MANUAL) 1 % (0-4); LYMPHOCYTES % (MANUAL) 62 % (16-48); MONOCYTES % (MANUAL) 7 % (0-11.0); NEUTROPHILS % (MANUAL) 30 (42-76)
[2025-03-24 06:58] LABS: PLATELET ESTIMATE DECREASED
[2025-03-24 08:00] VITALS: BP 91/54; TEMP 97.3; O2SAT 99
[2025-03-24 08:15] VITALS: BP 91/54; TEMP 97.3; O2SAT 99
[2025-03-24] MEDS ORDERED: HYDR-4303 PO (08:21)
[2025-03-24] MEDS ORDERED: BISACODYL SUPP (10 MG) 10 MG/SUPP.RECT SUPP.RECT RC PRN (09:00)
[2025-03-24] MEDS: LACOSAMIDE 50 MG TABLET PO SCH (09:00)
[2025-03-24] MEDS ORDERED: NITROGLYCERIN 0.4 MG/TAB BOTTLE SL PRN (09:00)
[2025-03-24] MEDS ORDERED: HYDROCODONE/APAP 5/325MG TABLET PO PRN (09:00)
[2025-03-24] MEDS ORDERED: hydrOXYzine PAMOATE 25 MG CAPSULE PO PRN (09:00)
[2025-03-24] MEDS ORDERED: HOME MED MISCELLANEOUS XX SCH (09:00)
[2025-03-24] MEDS: POLYETHYLENE GLYCOL 3350 17 GM POWD.PACK PO SCH (09:00)
[2025-03-24] MEDS: DULOXETINE HCL 30 MG CAPSULE.DR PO SCH (09:00)
[2025-03-24] MEDS: DICLOFENAC TOPICAL 100 GM TUBE TP SCH (09:00)
[2025-03-24] MEDS: CARBIDOPA/LEVODOPA 25/100 MG 1 UDTAB PO SCH (09:00)
[2025-03-24] MEDS: APIXABAN 5 MG TABLET PO SCH (10:05)
[2025-03-24] MEDS: GABAPENTIN 400 MG CAPSULE PO SCH (10:14)
[2025-03-24] MEDS: ARIPIPRAZOLE 2 MG TABLET PO SCH (10:14)
[2025-03-24] MEDS: MULTIVITAMINS,THERAGRAN 1 UDTAB TABLET PO SCH (10:14)
[2025-03-24] MEDS: LEVETIRACETAM (250 MG) 250 MG TABLET PO SCH (10:15)
[2025-03-24] MEDS: LEVOFLOXACIN 500 MG /D5W 100ML 500 MG in PREMIX 1 EA IV SCH (11:27)
[2025-03-24] MEDS: GABAPENTIN 300 MG CAPSULE PO SCH (13:38)
[2025-03-24 16:00] VITALS: BP 90/58; TEMP 97.7; O2SAT 100
[2025-03-24] MEDS: MORPHINE SULFATE INJ 2 MG/ML DISP.SYRIN IV PRN (17:35)
[2025-03-24 17:36] VITALS: BP 105/62
[2025-03-24 20:00] VITALS: BP 92/60; TEMP 97.5; O2SAT 100
[2025-03-24] MEDS: ATORVASTATIN 40 MG TABLET PO SCH (21:31)
[2025-03-25] MEDS: IV NS 0.9% 500 ML IV ONE (03:09)
[2025-03-25 08:00] VITALS: BP 105/60
[2025-03-25 08:00] LABS: BASOPHILS % (AUTO) 1.4 % (0.0-2.0); EOSINOPHILS # (AUTO) 0.1 K/uL (0.0-0.7); EOSINOPHILS % (AUTO) 3.5 % (0.0-6.0); HEMATOCRIT 32 % (33-45); HEMOGLOBIN 10.6 g/dL (11.5-14.8); LYMPHOCYTES # (AUTO) 1.3 K/uL (0.8-4.8); LYMPHOCYTES % (AUTO) 70.5 % (20.0-44.0); MEAN CORPUSCULAR HEMOGLOBIN 34 PG (26.0-33.0); MEAN CORPUSCULAR HGB CONC 33 g/dl (31.0-36.0); MEAN CORPUSCULAR VOLUME 105 fL (82-100); MONOCYTES # (AUTO) 0.1 K/uL (0.1-1.30); MONOCYTES % (AUTO) 4.7 % (2.0-12.0); NEUTROPHILS # (AUTO) 0.4 K/uL (1.8-8.9); NEUTROPHILS % (AUTO) 19.9 % (43.0-81.0); RED BLOOD CELL COUNT(AUTO) 3.08 MIL/uL (4.0-5.2); RED CELL DISTRIBUTION WIDTH 16.6 % (11.5-15.0)
[2025-03-25 08:07] LABS: PLATELET COUNT (AUTO) 39 K/uL (150-450); WHITE BLOOD COUNT (AUTO) 1.8 K/uL (4.3-11.0)
[2025-03-25 08:15] LABS: CALCIUM, SERUM 8.8 mg/dL (8.5-10.1); CREATININE 0.7 mg/dL (0.6-1.3); MAGNESIUM 1.9 mg/dL (1.8-2.4); PHOSPHORUS 3.7 mg/dL (2.5-4.9); POTASSIUM 4.6 mmol/L (3.5-5.1)
[2025-03-25 12:59] LABS: EOSINOPHILS % (MANUAL) 1 % (0-4); LYMPHOCYTES % (MANUAL) 38 % (16-48); MONOCYTES % (MANUAL) 1 % (0-11.0)
[2025-03-25 13:00] LABS: NEUTROPHILS % (MANUAL) 10 (42-76)
[2025-03-25 13:01] LABS: ANISOCYTOSIS 1+; OVALOCYTES 1+; PLATELET ESTIMATE DECREASED
== END 2025-03-25 15:30 | DRG 206 ==
LOC: ER 02:04 → TELE 06:14 → MED 10:50
PROVIDERS: ADMIT Nurse Practitioner Acute Care; ATTEND Nurse Practitioner Acute Care
DX: M94.0 Chondrocostal junction syndrome [Tietze] (principal); D68.59 Other primary thrombophilia; D61.818 Other pancytopenia; E44.0 Moderate protein-calorie malnutrition; N39.0 Urinary tract infection, site not specified; G40.909 Epilepsy, unspecified, not intractable, without status epilepticus; I10 Essential (primary) hypertension; I25.10 Atherosclerotic heart disease of native coronary artery without angina pectoris; I48.91 Unspecified atrial fibrillation; F20.9 Schizophrenia, unspecified; E66.9 Obesity, unspecified; F41.9 Anxiety disorder, unspecified; M32.9 Systemic lupus erythematosus, unspecified; Z74.01 Bed confinement status; Z86.718 Personal history of other venous thrombosis and embolism; Z86.73 Personal history of transient ischemic attack (TIA), and cerebral infarction without residual deficits; Z87.440 Personal history of urinary (tract) infections; Z88.0 Allergy status to penicillin; Z79.01 Long term (current) use of anticoagulants; A49.01 Methicillin susceptible Staphylococcus aureus infection, unspecified site; I95.9 Hypotension, unspecified; Z74.09 Other reduced mobility; G89.29 Other chronic pain; Z68.34 Body mass index [BMI] 34.0-34.9, adult; Z79.899 Other long term (current) drug therapy; Z95.828 Presence of other vascular implants and grafts; Z87.891 Personal history of nicotine dependence; Z98.1 Arthrodesis status; G20.A1 Parkinson's disease without dyskinesia, without mention of fluctuations; F31.9 Bipolar disorder, unspecified
CPT/HCPCS: 36415; 71045-TC; 80048-TC; 80053-TC; 81001; 83690-TC; 83735-TC; 83880; 84100-TC; 84484-TC; 85025-TC; 87040-TC; 87081-TC; 87086-TC; A4216; A4223; G0378; J1956; J2270; J2405; J7040; J7050